=== PATIENT | female | born 1980 | race Caucasian/White ===

== ENCOUNTER 2018-05-05 09:51 | Inpatient (IN) | payer BC ==
[2018-05-05] MEDS ORDERED: SODIUM CHLORIDE 0.9% 1,000 ML IV ONE (10:12)
[2018-05-05 10:41] LABS: Basophils % (A) 0 %; Eosinophils # (A) 0.1 k/uL (0-0.7); Eosinophils % (A) 0 %; HCT 42.6 % (34.0-46.0); Lymphocytes # (A) 2.3 k/uL (1.0-4.8); Lymphocytes % (A) 15 %; MCH 28.6 pg (25.0-35.0); MCV 86.8 fL (80.0-100.0); Mean Platelet Volume 6.8; Monocytes # (A) 0.5 k/uL (0-1.0); Monocytes % (A) 3 %; Neutrophils % (A) 81 %; Platelet Count 375 k/uL (150-450); RDW 13.5 % (11.5-15.5); WBC 14.9 k/uL (3.8-10.6)
--- NOTE | 2018-05-05 10:50 | ED ---
Altered Mental Status HPI - General Chief Complaint: Altered Mental Status Stated Complaint: ETOH Time Seen by Provider: 05/05/18 09:51 Source: patient, EMS, RN notes reviewed Mode of arrival: EMS Limitations: altered mental status - History of Present Illness Initial Comments: This is a 37-year-old female with an unknown past medical history who per EMS was recently discharged from a rehab who was brought in for evaluation from home. Per paramedics her called for an outside wine stating that his was not acting normally. She did recently get out of her rehab. She is found naked in bed by paramedics. She is brought here for evaluation of patient was nonverbal however and would not answer questions. She seemed to be awake and alert however. There was a small of alcohol on her breath for paramedics. Also question whether her Seroquel was taken as was a prescription in this patient's name of. No other information available at this time. Multiple bruises were reported. MD Complaint: confusion, decreased responsiveness - Related Data Home Medications Medication Instructions Recorded Confirmed Cyclobenzaprine [Flexeril] 10 mg PO HS 05/05/18 05/05/18 DULoxetine HCL [Cymbalta] 60 mg PO DAILY 05/05/18 05/05/18 Hydroxychloroquine Sulfate 200 mg PO BID 05/05/18 05/05/18 [Plaquenil] Pregabalin [Lyrica] 50 mg PO BID 05/05/18 05/05/18 Allergies Allergy/AdvReac Type Severity Reaction Status Date / Time Penicillins Allergy Unknown Verified 05/05/18 10:12 Review of Systems ROS Statement: Those systems with pertinent positive or pertinent negative responses have been documented in the HPI. ROS Other: All systems not noted in ROS Statement are negative. Limitations: ROS unobtainable due to patients medical condition Past Medical History Past Medical History: No Reported History Past Surgical History: No Surgical Hx Reported Smoking Status: Current every day smoker Past Alcohol Use History: Abuse Past Drug Use History: None Reported General Exam - General Exam Comments Initial Comments: This is a well-developed well-nourished awake female who will not or cannot respond to questions she does avoid eye contact. There is evidence of some bruising about the orbits as well as bruising to both volar forearms with some abrasions to the right forearm. Limitations: altered mental status General appearance: alert, lethargic Head exam: Present: normocephalic, other (As stated above) Eye exam: Present: normal appearance, PERRL, EOMI. Absent: scleral icterus, conjunctival injection, periorbital swelling ENT exam: Present: normal exam, mucous membranes moist Neck exam: Present: normal inspection, full ROM. Absent: tenderness, meningismus, lymphadenopathy Respiratory exam: Present: normal lung sounds bilaterally. Absent: respiratory distress, wheezes, rales, rhonchi, stridor Cardiovascular Exam: Present: normal rhythm, tachycardia, normal heart sounds. Absent: systolic murmur, diastolic murmur, rubs, gallop, clicks GI/Abdominal exam: Present: soft, normal bowel sounds. Absent: distended, tenderness, guarding, rebound, rigid, bruit, pulsatile mass, hernia Rectal exam: Present: deferred Extremities exam: Present: full ROM, normal capillary refill, other (The bruising as noted above as well as abrasion to the right forearm no active bleeding no wounds that need repair) Back exam: Present: normal inspection, full ROM Neurological exam: Present: altered, CN II-XII intact. Absent: motor sensory deficit Psychiatric exam: Present: flat affect Skin exam: Present: warm, dry Course Vital Signs 05/05/18 05/05/18 10:01 13:05 Temperature 99 F 98.6 F Pulse Rate 133 H 107 H Respiratory 20 16 Rate Blood Pressure 115/75 98/65 O2 Sat by Pulse 97 97 Oximetry - Reevaluation(s) Reevaluation #1: 05/05/18 14:07 I did reevaluate patient several occasions she is much more alert though she does remain intoxicated. She is still refusing give much information with respect to her address medical history etc. Medical Decision Making - Medical Decision Making Patient will be admitted for evaluation for acute alcohol intoxication. - Lab Data Result diagrams: 05/05/18 10:25 05/05/18 10:25 Lab Results 05/05/18 05/05/18 05/05/18 Range/Units 10:17 10:17 10:25 WBC (3.8-10.6) k/uL RBC (3.80-5.40) m/uL Hgb (11.4-16.0) gm/dL Hct (34.0-46.0) % MCV (80.0-100.0) fL MCH (25.0-35.0) pg MCHC (31.0-37.0) g/dL RDW (11.5-15.5) % Plt Count (150-450) k/uL Neutrophils % % Lymphocytes % % Monocytes % % Eosinophils % % Basophils % % Neutrophils # (1.3-7.7) k/uL Lymphocytes # (1.0-4.8) k/uL Monocytes # (0-1.0) k/uL Eosinophils # (0-0.7) k/uL Basophils # (0-0.2) k/uL PT (9.0-12.0) sec INR (<1.2) APTT (22.0-30.0) sec Sodium (137-145) mmol/L Potassium (3.5-5.1) mmol/L Chloride (98-107) mmol/L Carbon Dioxide (22-30) mmol/L Anion Gap mmol/L BUN (7-17) mg/dL Creatinine (0.52-1.04) mg/dL Est GFR (CKD-EPI)AfAm (>60 ml/min/1.73 sqM) Est GFR (CKD-EPI)NonAf (>60 ml/min/1.73 sqM) Glucose (74-99) mg/dL POC Glucose (mg/dL) (75-99) mg/dL POC Glu Master Fisher ID Osmolality 387 H* (280-301) mosm/kg Calcium (8.4-10.2) mg/dL Magnesium (1.6-2.3) mg/dL Total Bilirubin (0.2-1.3) mg/dL AST (14-36) U/L ALT (9-52) U/L Alkaline Phosphatase (38-126) U/L Ammonia (<30) umol/L Total Creatine Kinase (30-135) U/L CK-MB (CK-2) (0.0-2.4) ng/mL CK-MB (CK-2) Rel Index Troponin I (0.000-0.034) ng/mL Total Protein (6.3-8.2) g/dL Albumin (3.5-5.0) g/dL Amylase (30-110) U/L Lipase (23-300) U/L Urine Color Light Yellow Urine Appearance Clear (Clear) Urine pH 6.0 (5.0-8.0) Ur Specific [place] 1.002 (1.001-1.035) Urine Protein Negative (Negative) Urine Glucose (UA) Negative (Negative) Urine Ketones Negative (Negative) Urine Blood Small H (Negative) Urine Nitrite Negative (Negative) Urine Bilirubin Negative (Negative) Urine Urobilinogen <2.0 (<2.0) mg/dL Ur Leukocyte Esterase Negative (Negative) Urine WBC <1 (0-5) /hpf Ur Squamous Epith Cells <1 (0-4) /hpf Urine Bacteria Occasional H (None) /hpf Urine Mucus Rare H (None) /hpf Urine HCG, Qual Not Detected (Not Detectd) Salicylates mg/dL Urine Opiates Screen Not Detected (NotDetected) Ur Oxycodone Screen Not Detected (NotDetected) Urine Methadone Screen Not Detected (NotDetected) Ur Propoxyphene Screen Not Detected (NotDetected) Acetaminophen ug/mL Ur Barbiturates Screen Not Detected (NotDetected) U Tricyclic Antidepress Not Detected (NotDetected) Ur Phencyclidine Scrn Not Detected (NotDetected) Ur Amphetamines Screen Not Detected (NotDetected) U Methamphetamines Scrn Not Detected (NotDetected) U Benzodiazepines Scrn Not Detected (NotDetected) Urine Cocaine Screen Not Detected (NotDetected) U Marijuana (THC) Screen Detected H (NotDetected) Serum Alcohol mg/dL 05/05/18 05/05/18 05/05/18 Range/Units 10:25 10:25 10:25 WBC (3.8-10.6) k/uL RBC (3.80-5.40) m/uL Hgb (11.4-16.0) gm/dL Hct (34.0-46.0) % MCV (80.0-100.0) fL MCH (25.0-35.0) pg MCHC (31.0-37.0) g/dL RDW (11.5-15.5) % Plt Count (150-450) k/uL Neutrophils % % Lymphocytes % % Monocytes % % Eosinophils % % Basophils % % Neutrophils # (1.3-7.7) k/uL Lymphocytes # (1.0-4.8) k/uL Monocytes # (0-1.0) k/uL Eosinophils # (0-0.7) k/uL Basophils # (0-0.2) k/uL PT (9.0-12.0) sec INR (<1.2) APTT (22.0-30.0) sec Sodium 146 H (137-145) mmol/L Potassium 3.9 (3.5-5.1) mmol/L Chloride 106 (98-107) mmol/L Carbon Dioxide 21 L (22-30) mmol/L Anion Gap 19 mmol/L BUN 5 L (7-17) mg/dL Creatinine 0.65 (0.52-1.04) mg/dL Est GFR (CKD-EPI)AfAm >90 (>60 ml/min/1.73 sqM) Est GFR (CKD-EPI)NonAf >90 (>60 ml/min/1.73 sqM) Glucose 130 H (74-99) mg/dL POC Glucose (mg/dL) (75-99) mg/dL POC Glu Master Fisher ID Osmolality (280-301) mosm/kg Calcium 9.5 (8.4-10.2) mg/dL Magnesium 1.6 (1.6-2.3) mg/dL Total Bilirubin 0.4 (0.2-1.3) mg/dL AST 80 H (14-36) U/L ALT 68 H (9-52) U/L Alkaline Phosphatase 75 (38-126) U/L Ammonia 13 (<30) umol/L Total Creatine Kinase 853 H (30-135) U/L CK-MB (CK-2) 10.2 H (0.0-2.4) ng/mL CK-MB (CK-2) Rel Index 1.2 Troponin I <0.012 (0.000-0.034) ng/mL Total Protein 7.7 (6.3-8.2) g/dL Albumin 4.5 (3.5-5.0) g/dL Amylase 45 (30-110) U/L Lipase 84 (23-300) U/L Urine Color Urine Appearance (Clear) Urine pH (5.0-8.0) Ur Specific [place] (1.001-1.035) Urine Protein (Negative) Urine Glucose (UA) (Negative) Urine Ketones (Negative) Urine Blood (Negative) Urine Nitrite (Negative) Urine Bilirubin (Negative) Urine Urobilinogen (<2.0) mg/dL Ur Leukocyte Esterase (Negative) Urine WBC (0-5) /hpf Ur Squamous Epith Cells (0-4) /hpf Urine Bacteria (None) /hpf Urine Mucus (None) /hpf Urine HCG, Qual (Not Detectd) Salicylates <1.0 mg/dL Urine Opiates Screen (NotDetected) Ur Oxycodone Screen (NotDetected) Urine Methadone Screen (NotDetected) Ur Propoxyphene Screen (NotDetected) Acetaminophen <10.0 ug/mL Ur Barbiturates Screen (NotDetected) U Tricyclic Antidepress (NotDetected) Ur Phencyclidine Scrn (NotDetected) Ur Amphetamines Screen (NotDetected) U Methamphetamines Scrn (NotDetected) U Benzodiazepines Scrn (NotDetected) Urine Cocaine Screen (NotDetected) U Marijuana (THC) Screen (NotDetected) Serum Alcohol 379 H* mg/dL 05/05/18 05/05/18 05/05/18 Range/Units 10:25 10:25 10:30 WBC 14.9 H (3.8-10.6) k/uL RBC 4.90 (3.80-5.40) m/uL Hgb 14.0 (11.4-16.0) gm/dL Hct 42.6 (34.0-46.0) % MCV 86.8 (80.0-100.0) fL MCH 28.6 (25.0-35.0) pg MCHC 33.0 (31.0-37.0) g/dL RDW 13.5 (11.5-15.5) % Plt Count 375 (150-450) k/uL Neutrophils % 81 % Lymphocytes % 15 % Monocytes % 3 % Eosinophils % 0 % Basophils % 0 % Neutrophils # 12.0 H (1.3-7.7) k/uL Lymphocytes # 2.3 (1.0-4.8) k/uL Monocytes # 0.5 (0-1.0) k/uL Eosinophils # 0.1 (0-0.7) k/uL Basophils # 0.0 (0-0.2) k/uL PT 9.7 (9.0-12.0) sec INR 1.0 (<1.2) APTT 22.1 (22.0-30.0) sec Sodium (137-145) mmol/L Potassium (3.5-5.1) mmol/L Chloride (98-107) mmol/L Carbon Dioxide (22-30) mmol/L Anion Gap mmol/L BUN (7-17) mg/dL Creatinine (0.52-1.04) mg/dL Est GFR (CKD-EPI)AfAm (>60 ml/min/1.73 sqM) Est GFR (CKD-EPI)NonAf (>60 ml/min/1.73 sqM) Glucose (74-99) mg/dL POC Glucose (mg/dL) 131 H (75-99) mg/dL POC Glu Master Fisher ID Therese Griffith Osmolality (280-301) mosm/kg Calcium (8.4-10.2) mg/dL Magnesium (1.6-2.3) mg/dL Total Bilirubin (0.2-1.3) mg/dL AST (14-36) U/L ALT (9-52) U/L Alkaline Phosphatase (38-126) U/L Ammonia (<30) umol/L Total Creatine Kinase (30-135) U/L CK-MB (CK-2) (0.0-2.4) ng/mL CK-MB (CK-2) Rel Index Troponin I (0.000-0.034) ng/mL Total Protein (6.3-8.2) g/dL Albumin (3.5-5.0) g/dL Amylase (30-110) U/L Lipase (23-300) U/L Urine Color Urine Appearance (Clear) Urine pH (5.0-8.0) Ur Specific [place] (1.001-1.035) Urine Protein (Negative) Urine Glucose (UA) (Negative) Urine Ketones (Negative) Urine Blood (Negative) Urine Nitrite (Negative) Urine Bilirubin (Negative) Urine Urobilinogen (<2.0) mg/dL Ur Leukocyte Esterase (Negative) Urine WBC (0-5) /hpf Ur Squamous Epith Cells (0-4) /hpf Urine Bacteria (None) /hpf Urine Mucus (None) /hpf Urine HCG, Qual (Not Detectd) Salicylates mg/dL Urine Opiates Screen (NotDetected) Ur Oxycodone Screen (NotDetected) Urine Methadone Screen (NotDetected) Ur Propoxyphene Screen (NotDetected) Acetaminophen ug/mL Ur Barbiturates Screen (NotDetected) U Tricyclic Antidepress (NotDetected) Ur Phencyclidine Scrn (NotDetected) Ur Amphetamines Screen (NotDetected) U Methamphetamines Scrn (NotDetected) U Benzodiazepines Scrn (NotDetected) Urine Cocaine Screen (NotDetected) U Marijuana (THC) Screen (NotDetected) Serum Alcohol mg/dL - EKG Data -: EKG Interpreted by Wi EKG shows normal: sinus rhythm (Sinus rhythm with a tachycardic rate of 125 [place] interval 156 QRS 86 QT since QTC 310/447 rightward axis) Disposition Clinical Impression: Alcoholic intoxication, Acute confusional state Disposition: ADMITTED IP TO THIS [facility] Condition: Stable Referrals: Adriana Chandra MD [Primary Care Provider] - 1-2 days
[2018-05-05 10:53] LABS: ALT 68 U/L (9-52); AST 80 U/L (14-36); Acetaminophen <10.0 ug/mL; Albumin 4.5 g/dL (3.5-5.0); Alkaline Phosphatase 75 U/L (38-126); Amylase 45 U/L (30-110); Anion Gap 19 mmol/L; Blood Urea Nitrogen 5 mg/dL (7-17); Calcium 9.5 mg/dL (8.4-10.2); Carbon Dioxide 21 mmol/L (22-30); Chloride 106 mmol/L (98-107); Glucose 130 mg/dL (74-99); Lipase 84 U/L (23-300); Magnesium 1.6 mg/dL (1.6-2.3); Potassium 3.9 mmol/L (3.5-5.1); Salicylate <1.0 mg/dL; Sodium 146 mmol/L (137-145); Total Bilirubin 0.4 mg/dL (0.2-1.3); Total Protein 7.7 g/dL (6.3-8.2)
[2018-05-05 10:54] LABS: Prothrombin Time 9.7 sec (9.0-12.0)
[2018-05-05 10:57] LABS: Appearance,Urine Clear (Clear); Bacteria,Urine Occasional /hpf; Bilirubin,Urine Negative (Negative); Blood,Urine Small (Negative); Color,Urine Light Yellow; Glucose,Urine (UA) Negative (Negative); Ketones,Urine Negative (Negative); Leukocyte Esterase,Urine Negative (Negative); Mucus,Urine Rare /hpf; Nitrite,Urine Negative (Negative); Protein,Urine Negative (Negative); Specific Gravity,Urine 1.002 (1.001-1.035); Squamous Epithelial Cell,Urine <1 /hpf (0-4); Urobilinogen,Urine <2.0 mg/dL (<2.0); WBC,Urine <1 /hpf (0-5)
[2018-05-05 10:58] LABS: Amphetamine Screen,Urine Not Detected (NotDetected); Barbiturate Screen,Urine Not Detected (NotDetected); Benzodiazepines Screen,Urine Not Detected (NotDetected); Cocaine Screen,Urine Not Detected (NotDetected); Methadone Screen, Urine Not Detected (NotDetected); Opiate Screen,Urine Not Detected (NotDetected); Oxycodone Screen, Urine Not Detected (NotDetected); Phencyclidine Screen,Urine Not Detected (NotDetected); Tricyclic Antidepressant,Urine Not Detected (NotDetected); Urn Cannabinoid Scrn Detected (NotDetected)
[2018-05-05 11:01] LABS: Partial Thromboplastin Time 22.1 sec (22.0-30.0)
[2018-05-05 11:09] LABS: Creatine Kinase 853 U/L (30-135)
[2018-05-05 11:12] LABS: Alcohol 379 mg/dL
[2018-05-05 11:22] LABS: Creatine Kinase MB 10.2 ng/mL (0.0-2.4); Troponin I <0.012 ng/mL (0.000-0.034)
[2018-05-05 13:09] LABS: Glucose,Whole Blood 131 mg/dL (75-99)
[2018-05-05] MEDS ORDERED: NALOXONE 0.4 MG/ML 1 ML VIAL IV PRN (14:09)
--- NOTE | 2018-05-05 14:25 | CT ---
EXAMINATION TYPE: CT brain wo con DATE OF EXAM: 05/05/2018 COMPARISON: None HISTORY: Altered mental status CT DLP: 1148.[address] of the brain was performed. The ventricles, basal cisterns and sulci overlying the cerebral convexities demonstrate a normal appe arance. There is no evidence for intracranial hemorrhage or sulcal effacement. No mass effects are seen. Osseous calvarium is intact. If symptoms persist consider MRI as clinically warranted. IMPRESSION: 1. No acute intracranial process is seen at this time.
--- NOTE | 2018-05-05 14:31 | XR ---
EXAMINATION TYPE: XR chest 2V DATE OF EXAM: 05/05/2018 COMPARISON: NONE TECHNIQUE: PA and lateral views submitted. HISTORY: Altered mental status FINDINGS: The lungs are clear and there is no pneumothorax, pleural effusion, or focal pneumonia. No overt fa ilure. Right clavicle is elevated relative to the acromium correlate for previous AC joint injury. IMPRESSION: 1. No acute process.
[2018-05-05] MEDS ORDERED: LORazepam 2 MG/ML INJ IV PRN (14:45)
[2018-05-05] MEDS ORDERED: THIAMINE 100 MG/ML 2 ML VIAL IM STA (14:45)
[2018-05-05] MEDS ORDERED: ACETAMINOPHEN TAB 500 MG TAB PO PRN (15:09)
[2018-05-05] MEDS ORDERED: HYDROcodone/APAP 5-325MG 1 EACH TAB PO PRN (15:09)
[2018-05-05] MEDS: SODIUM CHLORIDE 0.9% 1,000 ML IV SCH (15:52)
[2018-05-05] MEDS: LORazepam 2 MG/ML INJ IV PRN ×2 (16:57→21:13)
[2018-05-05] MEDS: THIAMINE 100 MG TAB PO SCH (16:57)
--- NOTE | 2018-05-05 17:24 | HP ---
HISTORY AND PHYSICAL CHIEF COMPLAINT: Change in mental status. HISTORY OF PRESENT ILLNESS: This 37-year-old woman without any a documented clear history in the past, was taken by EMS with change in mental status. Apparently, the EMS was called by saying that the patient has some change in mental status. EMS found the patient confused, some bruises, alcohol level was elevated up to 379 and please refer to the EMS notes for further details. The patient was taken to [facility] and was admitted for further evaluation and treatment. Apparently the patient was recently seen by Dr. Chandra and was given Plaquenil and Lyrica. Otherwise, no detailed history is not available. Per chart the patient is unable to remember clearly the past medical history. According to the chart, the patient resides with spouse and 2 year son. There is also history of smoking. The patient also reported that the patient has been drinking a significant amount of alcohol. PAST MEDICAL HISTORY: History of rheumatoid arthritis. SOCIAL HISTORY: History of smoking, history of alcohol as mentioned earlier. REVIEW OF SYSTEMS: Review of systems could to be taken because the patient is confused at this time. PHYSICAL EXAM: Pulse is 101, blood pressure 120/79, respiration 17, temperature 98.2, pulse ox 98% on room air. HEENT is conjunctivae normal. Neck is no jugular venous distention. S1, S2. RESPIRATORY: Breath sounds diminished in the bases. A few scattered rhonchi and crackles. ABDOMEN: Soft, nontender. No mass palpable. Legs: No edema. No swelling. NERVOUS SYSTEM: Higher functions as mentioned earlier. Otherwise moves all 4 limbs. No focal deficits. Lymphatics: No lymph nodes palpable in the neck, axillae or groin. Skin: Significant diffuse bruises present. LAB STUDIES: WBC 14.9, hemoglobin is 14, sodium 140, potassium 3.9, osmolality 387, AST ALT noted. Creatine kinase 853. ASSESSMENT: 1. Change in mental status, possible acute alcoholic intoxication. 2. Rule out psychiatric illnesses. 3. Rule out rheumatology disorders. 4. Increased AST, ALT, possibly alcoholic hepatitis. 5. Rule out depression bipolar. 6. Hypernatremia. 7. Increased WBC. RECOMMENDATIONS AND DISCUSSION: In this 37-year-old woman who presented with multiple complex medical issues, we will monitor the patient closely. Continue the current medications, management and symptomatic treatment. Otherwise, at this time, [facility] protocol. Psychiatric consultation. One-to-one precautions. Social Work consultation evaluation and resume the home medications. Hold Lyrica for now. See orders for details. p.r.n. Ativan may be used. Prognosis guarded because of multiple complex medical issues. Further recommendations to follow. MMODL / IJN: [id number] / MTDD
[2018-05-05] MEDS: HEPARIN SODIUM,PORCINE 5,000 UNIT/ML 1 ML VIAL SQ SCH (21:14)
[2018-05-05] MEDS: HYDROXYCHLOROQUINE SULFATE 200 MG TAB PO SCH (21:14)
[2018-05-05] MEDS: CYCLOBENZAPRINE 10 MG TAB PO SCH (21:14)
[2018-05-06] MEDS: LORazepam 2 MG/ML INJ IV PRN ×6 (01:17→13:40)
[2018-05-06] MEDS: SODIUM CHLORIDE 0.9% 1,000 ML IV SCH ×2 (03:26→14:55)
[2018-05-06] MEDS: IOPAMIDOL-300 CONTRAST 30 ML VIAL (ORAL USE) PO PRN ×2 (06:56→07:41)
[2018-05-06] MEDS: HYDROXYCHLOROQUINE SULFATE 200 MG TAB PO SCH ×2 (07:36→21:53)
[2018-05-06] MEDS: HEPARIN SODIUM,PORCINE 5,000 UNIT/ML 1 ML VIAL SQ SCH ×2 (07:37→21:53)
--- NOTE | 2018-05-06 09:21 | CT ---
EXAMINATION TYPE: CT abdomen pelvis wo con DATE OF EXAM: 05/06/2018 COMPARISON: None HISTORY: 37-year-old female Abdominal pain CT DLP: 426.3 mGycm. Automated exposure control for dose reduction was used. TECHNIQUE: Contiguous axial scanning of the abdomen and pelvis without IV contrast. Coronal and sagit neftali reconstructions performed. FINDINGS: Heart normal size without pericardial effusion. Lung bases clear without pleural effusion. Liver enlarged measuring 19.8 cm with marked decreased attenuation of the hepatic parenchyma. 8 mm so ft tissue density peripheral and inferior right liver lobe, axial image 32 can't be reassessed on fol low-up ultrasound. Adrenal glands, kidneys, spleen, and pancreas appear within normal limits. Dilated small bowel loops in the mid and lower abdomen without a transition point. Multiple ileal loo p's angle in the abdomen and pelvis show moderate circumferential wall thickening and fold thickening measuring up to 7 mm. There is associated mesenteric edema and mild pelvic free fluid. No free air. Oral contrast has progressed into the cecum. No significant stool burden and no pericolonic inflammatory change. Bladder partially distended. Uterus and left ovary are visualized. Right ovary attempts obscured by a djacent pleural parenchymal disease. No mesenteric or retroperitoneal lymphadenopathy seen. Bones: No osseous destructive process. Suggestion of some sludge within the gallbladder. No abnormal gallbladder distention. IMPRESSION: 1. Moderate to severe nonspecific ileitis with multiple inflamed small bowel loops hanging low in th e abdomen and pelvis. Associated mesenteric inflammation and mild pelvic free fluid. No free air. Cor relate for infectious or inflammatory causes including IBD. 2. Some dilated small bowel loops compatible with secondary ileus. No transition point to suggest ob struction. 3. Hepatomegaly (20 cm) with marked hepatic steatosis. Correlate with LFTs, lipid profile, and patie nt risk factors.
--- NOTE | 2018-05-06 10:22 | P.CN ---
Psychiatric Consult - . Consult date: 05/06/18 Consult:: 05/06/18 09:51 Altered mental status possible psychiatric history Assessment and Plan Assessment: HPI: This is a 37-year-old female with an unknown past medical history who per EMS was recently discharged from a rehab who was brought in for evaluation from home. Per paramedics her called for an outside wine stating that his was not acting normally. She did recently get out of her rehab. She is found naked in bed by paramedics. She is brought here for evaluation of patient was nonverbal however and would not answer questions. She seemed to be awake and alert however. There was a small of alcohol on her breath for paramedics. Also question whether her Seroquel was taken as was a prescription in this patient's name of. No other information available at this time. Multiple bruises were reported. MD Complaint: confusion, decreased responsiveness Interview with the patient who is a 37-year-old female who recently moved back to this area from [place] state has fibromyalgia and feels no one wants to treat her in this area. She is tearful sad and wants the ability to stop drinking. She is on still her fibromyalgia mental medicine which includes duloxetine and Plaquenil and Lyrica so I'm not sure what she is seeking. She states when she gets in pain she starts drinking alcohol we did discuss in detail use of ReVia naltrexone for alcohol prevention. I also recommended that she go to AA for 90 meetings in 90 days by therapist and psychiatrist. She states her melter caster now is not treating her fibromyalgia as I stated above she's getting the state near medication - Related Data Home Medications Medication Instructions Recorded Confirmed Cyclobenzaprine [Flexeril] 10 mg PO HS 05/05/18 05/05/18 DULoxetine HCL [Cymbalta] 60 mg PO DAILY 05/05/18 05/05/18 Hydroxychloroquine Sulfate 200 mg PO BID 05/05/18 05/05/18 [Plaquenil] Pregabalin [Lyrica] 50 mg PO BID 05/05/18 05/05/18 Allergies Allergy/AdvReac Type Severity Reaction Status Date / Time Penicillins Allergy Unknown Verified 05/05/18 10:12 Review of Systems ROS Statement: Those systems with pertinent positive or pertinent negative responses have been documented in the HPI. ROS Other: All systems not noted in ROS Statement are negative. Limitations: ROS unobtainable due to patients medical condition Past Medical History Past Medical History: No Reported History Past Surgical History: No Surgical Hx Reported Smoking Status: Current every day smoker Past Alcohol Use History: Abuse Past Drug Use History: None Reported Mental Status Examination - General Appearance: [well groomedappears younger than stated age] Speech/Language: [spontaneous Attitude/Behavior: [cooperative Mood: [depressed, anxious, fearful, hopelessness] Affect: [full range Orientation: [time, person, place situation] Thought Content: [wnl Risk Factors: [She is not suicidal (ideations, plan), and/or Homicidal ( ideations, plan), other] Perception: [wnl Thought Process: wnl Concentration/Attention Span: [wnl,] [Per observation and interview with the Recent Memory: [wnl Remote Memory: [wnl [past events, as related history] Intelligence: [ average] [based on history, based on vocabulary, syntax, grammar , and content] Judgement: [good] [per patient's behavior/history of present illness] Insight: [good] [understanding severity of illness/history of present illness] Psychiatric impression: History of major depressive disorder which is being treated for with the above antidepressant also history of fibromyalgia which can include anxiety and depressive symptoms. It is obvious that she has not alcohol use disorder severe and needs to focus on not drinking by going to AA 90 meetings in 90 days, finding a therapist to talk to which usually helps and recommend DBT, and exercise water aerobics program. She does not need to be in a psychiatric unit and can be treated on outpatient basis Psychiatric recommendations: Recommend using ReVia 50 mg at bedtime for alcohol prevention. Thank you for the most interesting consult Bandar Jang D.O. PhD (1) Alcoholic intoxication Current Visit: Yes Status: Acute Code(s): F10.929 - ALCOHOL USE, UNSPECIFIED WITH INTOXICATION, UNSPECIFIED SNOMED Code(s): 64534147 Time with Patient: Less than 30
[2018-05-06 10:25] LABS: Anion Gap 8 mmol/L; Blood Urea Nitrogen 9 mg/dL (7-17); Calcium 8.8 mg/dL (8.4-10.2); Carbon Dioxide 27 mmol/L (22-30); Chloride 103 mmol/L (98-107); Glucose 107 mg/dL (74-99); Sodium 138 mmol/L (137-145)
[2018-05-06 10:32] LABS: Potassium 4.3 mmol/L (3.5-5.1)
[2018-05-06 10:34] LABS: Basophils % (A) 0 %; Eosinophils # (A) 0.1 k/uL (0-0.7); Eosinophils % (A) 1 %; HCT 35.7 % (34.0-46.0); HGB 11.9 gm/dL (11.4-16.0); Lymphocytes # (A) 1.6 k/uL (1.0-4.8); Lymphocytes % (A) 19 %; MCH 28.6 pg (25.0-35.0); MCHC 33.2 g/dL (31.0-37.0); MCV 86.2 fL (80.0-100.0); Mean Platelet Volume 7.3; Monocytes # (A) 0.6 k/uL (0-1.0); Monocytes % (A) 7 %; Neutrophils # (A) 5.9 k/uL (1.3-7.7); Neutrophils % (A) 72 %; Platelet Count 225 k/uL (150-450); RBC 4.15 m/uL (3.80-5.40); RDW 13.2 % (11.5-15.5); WBC 8.2 k/uL (3.8-10.6)
[2018-05-06] MEDS: MULTIVITAMINS, THERA 1 EACH TAB PO SCH (11:07)
[2018-05-06] MEDS: THIAMINE 100 MG TAB PO SCH ×2 (11:07→14:58)
--- NOTE | 2018-05-06 12:50 | P.PN ---
Subjective This is a pleasant 37 years old female with past medical history of fibromyalgia and possible depression that she sees a x ray physician Dr. Griffin who prescribed her Lyrica and Plaquenil, Cymbalta. However patient denies suicidal or homicidal ideation. Patient presents because she was not acting right. And on admission patient has high serum alcohol level of 379. And mild hypernatremia with sodium 146, with increase of his molality at 387. And leukocytosis which came back to normal from 14.9 to 8.2 K. Patient was noticed to have bruising in her upper extremity however she denies history of fall or abuse. Patient was admitted and placed on see what protocol [place] was score was 10-15 years earlier this morning and she got 2 doses of benzodiazepine with 4 hours apart. Patient told me usually she does not drink and she was started drinking for the last few weeks for her fibromyalgia as per patient. I offered to test her for , patient declined. Risks benefits and alternatives are explained and she verbalized understanding Objective - Vital Signs Vital signs: Vital Signs Temp 98.6 F 05/06/18 07:34 Pulse 109 H 05/06/18 07:34 Resp 18 05/06/18 07:34 BP 124/85 05/06/18 07:34 Pulse Ox 97 05/06/18 07:34 Intake & Output 05/05/18 05/06/18 05/06/18 18:59 06:59 18:59 Output Total 200 Balance -200 Weight 72.575 kg Output: Urine 200 Straight 200 Other: # Voids 1 2 # Bowel Movements 1 - Exam GENERAL: The patient is alert and oriented x3, not in any acute distress. Well developed, well nourished. HEENT: Pupils are round and equally reacting to light. EOMI. No scleral icterus. No conjunctival pallor. Normocephalic, atraumatic. No pharyngeal erythema. No thyromegaly. CARDIOVASCULAR: S1 and S2 present. No murmurs, rubs, or gallops. PULMONARY: Chest is clear to auscultation, no wheezing or crackles. ABDOMEN: Soft, nontender, nondistended, normoactive bowel sounds. No palpable organomegaly. MUSCULOSKELETAL: No joint swelling or deformity. Bruising in both upper extremities. EXTREMITIES: No cyanosis, clubbing, or pedal edema. NEUROLOGICAL: Gross neurological examination did not reveal any focal deficits. SKIN: No rashes. - Labs CBC & Chem 7: 05/06/18 09:37 05/06/18 09:37 Labs: Abnormal Lab Results - Last 24 Hours (Table) 05/05/18 05/06/18 Range/Units 10:30 09:37 Glucose 107 H (74-99) mg/dL POC Glucose (mg/dL) 131 H (75-99) mg/dL Microbiology - Last 24 Hours (Table) 05/05/18 10:17 Urine Culture - Preliminary Urine,Catheterized Assessment and Plan Assessment: Acute alcohol intoxication and withdrawal Change in mental status, possible due to acute alcohol intoxication. Resolving History of major depression. With no suicidal ideation. Evaluated by psychiatrist Fibromyalgia Mild hypernatremia and dehydration. Resolved Leukocytosis. Resolved Plan: This is a pleasant 37 years old female who presents because of alcohol intoxication, withdrawal and fibromyalgia. Continue with see what protocol and IV fluids. Psychiatric evaluation.Labs and medication were reviewed.. Continue same treatment. Continue with symptomatic treatment. Resume home medication. Monitor lytes and vitals. DVT and GI prophylaxis. Further recommendations of the clinical course of the patient DVT prophylaxis: Subcutaneous heparin GI Prophylaxis: Pepcid Prognosis is guarded
[2018-05-06] MEDS: ALPRAZolam 0.5 MG TAB PO PRN (14:58)
[2018-05-06] MEDS: GABAPENTIN 100 MG CAP PO SCH ×2 (14:58→21:52)
--- NOTE | 2018-05-06 15:14 | CDI ---
Last Revision, May 2017 Documentation Clarification Form Date: 05/06/18 From: Mariaelena Cordero RN Admit Date: 05/06/2018 8:46:00 AM Patient Name: Marie Zhang Visit Number: [id number] ATTENTION: The Clinical Documentation Specialists (CDI) and [facility] Coding Staff appreciate your assistance in clarifying documentation. Please respond to the clarification below the line at the bottom and electronically sign. The CDI & [facility] Coding staff will review the response and follow-up if needed. Please note: Queries are made part of the Legal Health Record. If you have any questions, please contact the author of this message via ITS. Jeramy Arias MD, Can you please render your opinion on the following documentation? Patient admitted for alcohol intoxication History/Risk factors: RA, smoking, ETOH, fibromyalgia, major depression Clinical Indicators: Vitals on admission: T 99, P 133, R 20, 115/75, 97% RA Labs: WBC 14.9, SOD 146, C02 21, BUN 5, OSMOLALITY 387, AST 80, ALT 68, TOT CR KIN 853, CKMB 10.2 URINE DETECTED MARIJUANA, SERUM ALCOHOL 379 CT Brain: no acute intracranial process ED notes states patient was altered mental status, lethargic. H&P 12/4 Patient is confused. Patients states "she is not acting right". Treatment: Monitor vitals Medications: thiamine, Narcan, multivitamins, Ativan Consults: Psychiatric consult and Social work consult Q 4 hr neuro assessment In your professional opinion, can you please specify, if known? Metabolic Encephalopathy Toxic Encephalopathy Traumatic Encephalopathy Alcoholic Encephalopathy Hepatic Encephalopathy, if indicated, please clarify: Indicate whether acute, sub-acute or chronic? Causal Condition: Alcoholism, Hepatitis, other disease process? Other, please specify Unable to determine No encephalopathy was noted during my evaluation MTDD
[2018-05-06] MEDS: CYCLOBENZAPRINE 10 MG TAB PO SCH (21:53)
[2018-05-06] MEDS: FAMOTIDINE 20 MG/2 ML VIAL IV SCH (21:54)
[2018-05-07] MEDS: metroNIDAZOLE-NS PMX 500 MG in SALINE 1 100ML.BAG IVPB SCH ×2 (00:16→07:49)
[2018-05-07] MEDS: SODIUM CHLORIDE 0.9% 1,000 ML IV SCH ×2 (03:33→16:14)
[2018-05-07] MEDS: LORazepam 2 MG/ML INJ IV PRN ×4 (05:26→17:49)
[2018-05-07] MEDS: ALPRAZolam 0.5 MG TAB PO PRN (06:34)
[2018-05-07] MEDS: HEPARIN SODIUM,PORCINE 5,000 UNIT/ML 1 ML VIAL SQ SCH ×2 (07:49→22:08)
[2018-05-07] MEDS: HYDROXYCHLOROQUINE SULFATE 200 MG TAB PO SCH ×2 (07:49→22:09)
[2018-05-07] MEDS: GABAPENTIN 100 MG CAP PO SCH ×3 (07:49→22:09)
[2018-05-07] MEDS: FAMOTIDINE 20 MG/2 ML VIAL IV SCH ×2 (07:49→22:08)
[2018-05-07 10:30] LABS: Albumin 3.8 g/dL (3.5-5.0); Bilirubin, Delta 0.1 mg/dL (0.0-0.2); Bilirubin,Unconjugated 0.6 mg/dL (0.0-1.1); Total Bilirubin 0.7 mg/dL (0.2-1.3); Total Protein 6.6 g/dL (6.3-8.2)
[2018-05-07] MEDS: MULTIVITAMINS, THERA 1 EACH TAB PO SCH (11:02)
[2018-05-07] MEDS: THIAMINE 100 MG TAB PO SCH ×2 (11:02→16:14)
[2018-05-07] MEDS ORDERED: FOLIC ACID 1 MG TAB PO SCH (12:00)
[2018-05-07] MEDS: metroNIDAZOLE 500 MG TAB PO SCH (16:14)
--- NOTE | 2018-05-07 19:35 | P.PN ---
Subjective This is a pleasant 37 years old female with past medical history of fibromyalgia and possible depression that she sees a engineering inspection assistant Dr. Griffin who prescribed her Lyrica and Plaquenil, Cymbalta. However patient denies suicidal or homicidal ideation. Patient presents because she was not acting right. And on admission patient has high serum alcohol level of 379. And mild hypernatremia with sodium 146, with increase of his molality at 387. And leukocytosis which came back to normal from 14.9 to 8.2 K. Patient was noticed to have bruising in her upper extremity however she denies history of fall or abuse. Patient was admitted and placed on see what protocol [place] was score was 10-15 years earlier this morning and she got 2 doses of benzodiazepine with 4 hours apart. Patient told me usually she does not drink and she was started drinking for the last few weeks for her fibromyalgia as per patient. I offered to test her for , patient declined. Risks benefits and alternatives are explained and she verbalized understanding 05/07/2018 pt is looking more comfortable and less anxoius today , she needed ativan 4 times yesterday,pt today wanted to leave AMA because she was much concerned about her fibromyalgia, i talked to her in length and to her at bed side to stay one more day to continue with therapy till tomorrow and if she feels better we can think of discharge planing and she agrees. pt did not want to f/u with because she took her off lyrica for her fibromyealgia. i talked to pt and she agrees to the appointment i made with engineering inspection assistant at [facility] at [facility] as pt states she is willing to travel to her appointment there. continue with neurontin as it seems helping her. Objective - Vital Signs Vital signs: Vital Signs Temp 99.3 F 05/07/18 15:00 Pulse 75 05/07/18 15:00 Resp 16 05/07/18 15:00 BP 119/80 05/07/18 15:00 Pulse Ox 99 05/07/18 15:00 Intake & Output 05/07/18 05/07/18 05/08/18 06:59 18:59 06:59 Intake Total 100 200 Balance 100 200 Intake: Oral 100 200 Other: # Voids 1 3 - Exam GENERAL: The patient is alert and oriented x3, not in any acute distress. Well developed, well nourished. HEENT: Pupils are round and equally reacting to light. EOMI. No scleral icterus. No conjunctival pallor. Normocephalic, atraumatic. No pharyngeal erythema. No thyromegaly. CARDIOVASCULAR: S1 and S2 present. No murmurs, rubs, or gallops. PULMONARY: Chest is clear to auscultation, no wheezing or crackles. ABDOMEN: Soft, nontender, nondistended, normoactive bowel sounds. No palpable organomegaly. MUSCULOSKELETAL: No joint swelling or deformity. Bruising in both upper extremities. EXTREMITIES: No cyanosis, clubbing, or pedal edema. NEUROLOGICAL: Gross neurological examination did not reveal any focal deficits. SKIN: No rashes. - Labs CBC & Chem 7: 05/06/18 09:37 05/06/18 09:37 Labs: Abnormal Lab Results - Last 24 Hours (Table) 05/07/18 Range/Units 09:21 AST 62 H (14-36) U/L ALT 65 H (9-52) U/L Microbiology - Last 24 Hours (Table) 05/05/18 15:15 Blood Culture - Preliminary Blood No Growth after 48 hours 05/05/18 10:17 Urine Culture - Final Urine,Catheterized Assessment and Plan Assessment: Acute alcohol intoxication and withdrawal Change in mental status, possible due to acute alcohol intoxication. Resolved History of major depression. With no suicidal ideation. Evaluated by psychiatrist Fibromyalgia Mild hypernatremia and dehydration. Resolved Leukocytosis. Resolved Plan: This is a pleasant 37 years old female who presents because of alcohol intoxication, withdrawal and fibromyalgia. Continue with see what protocol and IV fluids. Psychiatric evaluation.Labs and medication were reviewed.. Continue same treatment. Continue with symptomatic treatment. Resume home medication. Monitor lytes and vitals. DVT and GI prophylaxis. Further recommendations of the clinical course of the patient DVT prophylaxis: Subcutaneous heparin GI Prophylaxis: Pepcid Prognosis is guarded
[2018-05-07] MEDS: CYCLOBENZAPRINE 10 MG TAB PO SCH (22:08)
[2018-05-08 00:07] VITALS: RESP 18
[2018-05-08] MEDS: metroNIDAZOLE 500 MG TAB PO SCH ×2 (00:33→09:15)
[2018-05-08] MEDS: LORazepam 2 MG/ML INJ IV PRN ×2 (00:58→05:59)
[2018-05-08] MEDS: SODIUM CHLORIDE 0.9% 1,000 ML IV SCH (05:58)
[2018-05-08 06:29] VITALS: BP 117/85; PULSE 92; TEMP 99.3
[2018-05-08] MEDS ORDERED: chlordiazePOXIDE 25 MG CAP PO STA (08:29)
[2018-05-08] MEDS: GABAPENTIN 100 MG CAP PO SCH (09:17)
[2018-05-08] MEDS: HEPARIN SODIUM,PORCINE 5,000 UNIT/ML 1 ML VIAL SQ SCH (09:17)
[2018-05-08] MEDS: FAMOTIDINE 20 MG/2 ML VIAL IV SCH (09:17)
[2018-05-08] MEDS: HYDROXYCHLOROQUINE SULFATE 200 MG TAB PO SCH (09:17)
[2018-05-08 09:29] LABS: Albumin 3.8 g/dL (3.5-5.0); Bilirubin, Delta 0.3 mg/dL (0.0-0.2); Bilirubin,Unconjugated 0.4 mg/dL (0.0-1.1); Total Bilirubin 0.7 mg/dL (0.2-1.3); Total Protein 6.7 g/dL (6.3-8.2)
[2018-05-08 11:04] LABS: Cholesterol 197 mg/dL (<200); HDL Cholesterol 41 mg/dL (40-60); LDL Cholesterol,Calculated 128 mg/dL (0-99); Triglycerides 140 mg/dL (<150)
--- NOTE | 2018-05-08 18:11 | P.DS ---
Providers Date of admission: 05/06/18 08:46 Attending physician: Olvin Angeles Consults: 05/05/18 15:11 Consult Physician Stat Consulting Provider: Bandar Jang Consult Reason/Comments: Alcohol abuse, possible psychiatric history Do you want consulting provider notified?: Yes Primary care physician: Adriana Chandra [facility] Course: Discharge diagnoses: Acute alcohol intoxication and withdrawal Change in mental status, mostly metabolic encephalopathy due to acute alcohol intoxication. Resolved and patient was fully awake and alert and oriented upon discharge History of major depression. With no suicidal ideation. Evaluated by psychiatrist and cleared her for discharge Fibromyalgia, referral was made for outpatient counter tacker to home patient agrees Systemic inflammatory response on admission with leukocytosis and tachycardia with heart rates more than 90. Gastroenteritis, resolved on antibiotics. Mild hypernatremia and dehydration. Resolved Leukocytosis. Resolved Bilateral upper extremity bruising, resolving upon discharge with no more ports is noticed 8 mm liver nodule on CAT scan This is a pleasant 37 years old female with past medical history of fibromyalgia and possible depression that she sees a counter tacker Dr. Griffin who prescribed her Lyrica and Plaquenil, Cymbalta. However patient denies suicidal or homicidal ideation. Dr. Diana took her off Lyrica as per patient, patient was drinking alcohol. Patient presents because she was not acting right. And on admission patient has high serum alcohol level of 379. And mild hypernatremia with sodium 146, with increase of his molality at 387. And leukocytosis which came back to normal from 14.9 to 8.2 K. Patient was noticed to have bruising in her upper extremity however she denies history of fall or abuse. Patient was admitted and placed on CIWA protocol , patient had high scar on admission, it was coming downtown on the day of discharge she was coming down to 4, and 2-3. Patient was evaluated by psychiatrist and cleared for discharge. Tapered dose of Librium was provided for the patient and counseled about the drink and she agrees. Patient was counseled for outpatient meeting however she doesn't want to go for rehab. Also on admission patient has gastritis-like picture is with abdominal pain and diarrhea and the CAT scan there wasn't evidence of enteritis. Patient was treated with Flagyl and she showed interval improvement under the day of discharge she has no abdominal pain and she had normal bowel movement. An appointment was made for her with a counter tacker and [facility], patient agrees with the appointments place and time and, together with her and she told me she is going to follow-up. Muscle relaxant prescription is provided for the patient does she sees her doctor and she agrees. Also during her evaluation there was 8 mm nodule in the liver, ultrasound of the liver was ordered, however patient did not want to wait till his been done as she wanted to be discharged this morning. As an alternative patient agrees to follow up with her PCP Dr. Lau and she agrees with the appointments and time and made for her with him. I called Dr. Lau and discussed the case with him including the recommendation to do liver ultrasound and possible GI referral if indicated for his 8 mm nodule. As well as follow-up on her liver enzymes which were trending down Patient felt she wants to be discharged from yesterday and more even today, at bedside to take her home. Problems and management plan was discussed with the patient and she verbalized understanding and acceptance. was bedside also upon patient's request Patient was found stable and can be discharged home however she needs follow-up as an outpatient and she agrees. physical exam Gen.: Patient alert awake and oriented X 3, NOT IN DISTRESS CVS: s1-s2, RRR, no murmur CHEST:bilateral CTA, no wheezing or crepitation Abdomen: Soft, no tenderness, no distention, positive bowel sounds Extremities: No leg edema or induration Time spent more than 35 minutes Patient Condition at Discharge: Stable Plan - Discharge Summary Discharge Rx Participant: Yes New Discharge Prescriptions: New Acetaminophen Tab [Tylenol] 500 mg PO Q6HR PRN tab PRN Reason: Fever And/ Or Pain Folic Acid 1 mg PO DAILY@1200 #30 tab metroNIDAZOLE [Flagyl] 500 mg PO Q8HR 2 Days #6 tab Multivitamins, Thera [Multivitamin (formulary)] 1 each PO DAILY@1200 #30 tab Thiamine [Vitamin B-1] 100 mg PO BID@1200,1700 #30 tab Continue Hydroxychloroquine Sulfate [Plaquenil] 200 mg PO BID DULoxetine HCL [Cymbalta] 60 mg PO DAILY Cyclobenzaprine [Flexeril] 10 mg PO HS #7 tab Discontinued Pregabalin [Lyrica] 50 mg PO BID Discharge Medication List DULoxetine HCL [Cymbalta] 60 mg PO DAILY 12/04/18 [History] Hydroxychloroquine Sulfate [Plaquenil] 200 mg PO BID 05/05/18 [History] Acetaminophen Tab [Tylenol] 500 mg PO Q6HR PRN tab 05/08/18 [Rx] Cyclobenzaprine [Flexeril] 10 mg PO HS #7 tab 05/08/18 [Rx] Folic Acid 1 mg PO DAILY@1200 #30 tab 05/08/18 [Rx] Multivitamins, Thera [Multivitamin (formulary)] 1 each PO DAILY@1200 #30 tab 12/17 [Rx] Thiamine [Vitamin B-1] 100 mg PO BID@1200,1700 #30 tab 05/08/18 [Rx] metroNIDAZOLE [Flagyl] 500 mg PO Q8HR 2 Days #6 tab 05/08/18 [Rx] Follow up Appointment(s)/Referral(s): Adriana Chandra MD [Primary Care Provider] - 1-2 days Everett Vinson DO [REFERRING] - 05/13/18 1:00 pm ([id number] [place] [address] we recommend to check your blood test with your doctor including your liver function test and enzymes.) Alexandria Hatfield MD [REFERRING] - 06/09/18 2:15 pm (with counter tacker alexandria Matias. Located at [address] [place] [address], [address]. [place] [address]. Number is [phone] For your fibromyalgia and other rheumatological illnesses) Patient Instructions/Handouts: Alcohol Intoxication (DC) Activity/Diet/Wound Care/Special Instructions: regular diet activity as tolerated we recommend to keep away from alcohol , psychiatrist recommended to go to AA for 90 meetings in 90 days by therapist and psychiatrist. Discharge Disposition: HOME SELF-CARE
== END 2018-05-08 11:42 | disposition home or self-care (01) | DRG 896 ==
LOC: EC 09:51 → 4MS4W 14:11 → OBSVTOIN 05-06 08:46
PROVIDERS: ADMIT Hospitalist; ATTEND Hospitalist
DX: F10.239 Alcohol dependence with withdrawal, unspecified (principal); G93.41 Metabolic encephalopathy; E87.0 Hyperosmolality and hypernatremia; R65.10 Systemic inflammatory response syndrome (SIRS) of non-infectious origin without acute organ dysfunction; E86.0 Dehydration; F17.200 Nicotine dependence, unspecified, uncomplicated; K52.9 Noninfective gastroenteritis and colitis, unspecified; K76.89 Other specified diseases of liver; M06.9 Rheumatoid arthritis, unspecified; M79.7 Fibromyalgia; Y90.8 Blood alcohol level of 240 mg/100 ml or more
CPT/HCPCS: 36415; 51701; 70450; 71046; 74176; 80048; 80053; 80061; 80076; 80306; 80320; 81001; 81025; 82140; 82150; 82550; 82553; 83520; 83690; 83735; 83930; 84484; 85025; 85610; 85730; 87040; 87086; 93005; 96361; 96374; 99285

== ENCOUNTER 2018-09-20 21:13 | Inpatient (IN) | payer BC ==
[2018-09-20 21:51] LABS: Appearance,Urine Clear (Clear); Bilirubin,Urine Negative (Negative); Blood,Urine Negative (Negative); Color,Urine Colorless; Glucose,Urine (UA) Negative (Negative); Ketones,Urine Negative (Negative); Leukocyte Esterase,Urine Negative (Negative); Nitrite,Urine Negative (Negative); PH, Urine 6.5 (5.0-8.0); Protein,Urine Negative (Negative); Specific Gravity,Urine 1.003 (1.001-1.035); Urobilinogen,Urine <2.0 mg/dL (<2.0)
[2018-09-20] MEDS ORDERED: SODIUM CHLORIDE 0.9% 1,000 ML IV ONE (22:07)
[2018-09-20 22:31] LABS: Basophils % (A) 0 %; Eosinophils # (A) 0.1 k/uL (0-0.7); Eosinophils % (A) 1 %; HCT 40.4 % (34.0-46.0); HGB 13.3 gm/dL (11.4-16.0); Lymphocytes # (A) 2.5 k/uL (1.0-4.8); Lymphocytes % (A) 23 %; MCH 28.8 pg (25.0-35.0); MCHC 32.9 g/dL (31.0-37.0); MCV 87.6 fL (80.0-100.0); Mean Platelet Volume 7.2; Monocytes # (A) 0.3 k/uL (0-1.0); Monocytes % (A) 3 %; Neutrophils # (A) 7.5 k/uL (1.3-7.7); Neutrophils % (A) 72 %; Platelet Count 299 k/uL (150-450); RBC 4.61 m/uL (3.80-5.40); RDW 13.3 % (11.5-15.5); WBC 10.5 k/uL (3.8-10.6)
[2018-09-20 22:43] LABS: Amphetamine Screen,Urine Not Detected (NotDetected); Barbiturate Screen,Urine Not Detected (NotDetected); Benzodiazepines Screen,Urine Not Detected (NotDetected); Cocaine Screen,Urine Not Detected (NotDetected); Methadone Screen, Urine Not Detected (NotDetected); Opiate Screen,Urine Not Detected (NotDetected); Oxycodone Screen, Urine Not Detected (NotDetected); Phencyclidine Screen,Urine Not Detected (NotDetected); Tricyclic Antidepressant,Urine Not Detected (NotDetected); Urn Cannabinoid Scrn Detected (NotDetected)
[2018-09-20 22:45] LABS: HCG,Qualitative Serum Not Detected
--- NOTE | 2018-09-20 22:45 | ED ---
General Adult HPI - General Chief complaint: Abdominal Pain Stated complaint: withdrawl from med Time Seen by Provider: 09/20/18 21:36 Source: EMS Mode of arrival: EMS Limitations: no limitations - History of Present Illness Initial comments: 37-year-old female presenting to the emergency department initially with a chief complaint of withdrawal symptoms secondary to running out of her Neurontin and her Flexeril. While speaking with the patient she was unable to provide a reliable history. Nursing staff spoke with EMS who stated that she was interm ittently a note 2-3. She told them she was having left-sided abdominal pain with some nausea and vomiting. Patient admits to left-sided sharp stabbing cramping abdominal pain that she states is worse with alcohol use, not alleviated by anything, and accompanied by nausea. She denies any vomiting to me. She denies any recent alcohol use or drug use. Patient states she does have a history of alcohol abuse in the past and has been to rehab. She states she has had withdrawal seizures but states that she does not drink every day. She denies any other ingestions. Denies suicidal or homicidal ideations, auditory or visual hallucinations, recent psych admission. Denies any dysuria, diarrhea, chest pain, shortness of breath. She also denies any head injury. - Related Data Home Medications Medication Instructions Recorded Confirmed Gabapentin [Neurontin] 300 mg PO HS 09/20/18 09/20/18 Previous Rx's Medication Instructions Recorded Cyclobenzaprine [Flexeril] 10 mg PO HS #7 tab 05/08/18 Allergies Allergy/AdvReac Type Severity Reaction Status Date / Time Penicillins Allergy Rash/Hives Verified 09/20/18 22:08 Review of Systems ROS Statement: Those systems with pertinent positive or pertinent negative responses have been documented in the HPI. Review of Systems Constitutional: Denies fever, chills Eyes: Denies change in vision, Denies pain Ears, nose, mouth, throat: Denies headaches, Denies sore throat Cardiovascular: Denies chest pain. Denies palpitations Respiratory: Denies shortness of breath, Denies cough Gastrointestinal: Positive abdominal pain. Positive nausea. Negative vomiting, diarrhea. Genitourinary: Denies hematuria, Denies infections Musculoskeletal: Denies pain, Denies swelling Integumentary: Denies rash Neurological: Denies headache, focal weakness, focal numbness Psychiatric: Denies anxiety, Denies depression Hematologic/Lymphatic: Denies easy bleeding or bruising ROS Other: All systems not noted in ROS Statement are negative. Past Medical History Past Medical History: Fibromyalgia History of Any Multi-Drug Resistant Organisms: None Reported Past Surgical History: Section Additional Past Anesthesia/Blood Transfusion Reaction / Comment(s): Pt states she has never had surgery/anesthesia or blood Past Psychological History: No Psychological Hx Reported Smoking Status: Current every day smoker Past Alcohol Use History: Rare Past Drug Use History: None Reported - Past Family History Father Family Medical History: No Reported History Additional Family Medical History / Comment(s): Pt states father is healthy. Mother Family Medical History: No Reported History Additional Family Medical History / Comment(s): Mother is healthy General Exam - General Exam Comments Initial Comments: General: Awake, alert. Smells of alcohol. No evidence of traumatic injury. HENT: Normocephalic. Atraumatic. Dry mucous membranes. Eyes: PERRL. 6 mm bilaterally EOMI. No scleral icterus. No injected conjunctiva Neck: Full ROM. No nuchal rigidity Chest/Lungs: Clear to auscultation bilaterally. No wheezing, rhonchi, or rales Cardiac: Sinus tachycardia. Regular rhythm. No murmurs or rubs Abdomen/GI: Soft, LUQ and LLQ tenderness to palpation. No rebound, guarding, or rigidity. Musculoskeletal: Full ROM Skin: Warm, dry, intact Neurologic: A/Ox2. No focal weakness. Moving all 4 extremities. Psych: Intermittent agitation. Tearful. Limitations: no limitations Course Vital Signs 09/20/18 09/20/18 21:18 23:19 Temperature 97.8 F Pulse Rate 111 H 104 H Respiratory 20 20 Rate Blood Pressure 118/87 127/94 O2 Sat by Pulse 98 99 Oximetry Medical Decision Making - Medical Decision Making 37 yoF presenting with the c/c of withdrawal. On initial exam the patient is int ermittently confused. She initially denied any ingestion. VSS. Patient had dilated pupils, dry mucous membranes, and is tachycadic. On further questioning she admits to taking an unknown amount of Benadryl to sleep. She is also intoxicated with a blood alcohol level of 232. UDS positive for THC. Remainder of laboratory workup negative for acute process. She does have mildly elevated liver enzymes that are likely secondary to her ETOH abuse. Patient having intermittent agitation. She was given 1mg of Ativan. I spoke with Dr. Pulliam who is agreeable to admission for anticholinergic toxidrome and ETOH intoxication. - Lab Data Result diagrams: 09/20/18 21:40 09/20/18 21:40 Lab Results 09/20/18 09/20/18 09/20/18 Range/Units 21:00 21:22 21:40 WBC (3.8-10.6) k/uL RBC (3.80-5.40) m/uL Hgb (11.4-16.0) gm/dL Hct (34.0-46.0) % MCV (80.0-100.0) fL MCH (25.0-35.0) pg MCHC (31.0-37.0) g/dL RDW (11.5-15.5) % Plt Count (150-450) k/uL Neutrophils % % Lymphocytes % % Monocytes % % Eosinophils % % Basophils % % Neutrophils # (1.3-7.7) k/uL Lymphocytes # (1.0-4.8) k/uL Monocytes # (0-1.0) k/uL Eosinophils # (0-0.7) k/uL Basophils # (0-0.2) k/uL Sodium 141 (137-145) mmol/L Potassium 4.0 (3.5-5.1) mmol/L Chloride 107 (98-107) mmol/L Carbon Dioxide 19 L (22-30) mmol/L Anion Gap 15 mmol/L BUN 9 (7-17) mg/dL Creatinine 0.64 (0.52-1.04) mg/dL Est GFR (CKD-EPI)AfAm >90 (>60 ml/min/1.73 sqM) Est GFR (CKD-EPI)NonAf >90 (>60 ml/min/1.73 sqM) Glucose 111 H (74-99) mg/dL Calcium 9.3 (8.4-10.2) mg/dL Total Bilirubin 0.4 (0.2-1.3) mg/dL Conjugated Bilirubin 0.0 (0.0-0.3) mg/dL Unconjugated Bilirubin 0.2 (0.0-1.1) mg/dL Delta Bilirubin 0.2 (0.0-0.2) mg/dL AST 42 H (14-36) U/L ALT 55 H (9-52) U/L Alkaline Phosphatase 72 (38-126) U/L Total Protein 7.5 (6.3-8.2) g/dL Albumin 4.5 (3.5-5.0) g/dL Lipase 48 (23-300) U/L HCG, Qual Not Detected Urine Color Colorless Urine Appearance Clear (Clear) Urine pH 6.5 (5.0-8.0) Ur Specific [place] 1.003 (1.001-1.035) Urine Protein Negative (Negative) Urine Glucose (UA) Negative (Negative) Urine Ketones Negative (Negative) Urine Blood Negative (Negative) Urine Nitrite Negative (Negative) Urine Bilirubin Negative (Negative) Urine Urobilinogen <2.0 (<2.0) mg/dL Ur Leukocyte Esterase Negative (Negative) Salicylates <1.0 mg/dL Urine Opiates Screen Not Detected (NotDetected) Ur Oxycodone Screen Not Detected (NotDetected) Urine Methadone Screen Not Detected (NotDetected) Ur Propoxyphene Screen Not Detected (NotDetected) Acetaminophen <10.0 ug/mL Ur Barbiturates Screen Not Detected (NotDetected) U Tricyclic Antidepress Not Detected (NotDetected) Ur Phencyclidine Scrn Not Detected (NotDetected) Ur Amphetamines Screen Not Detected (NotDetected) U Methamphetamines Scrn Not Detected (NotDetected) U Benzodiazepines Scrn Not Detected (NotDetected) Urine Cocaine Screen Not Detected (NotDetected) U Marijuana (THC) Screen Detected H (NotDetected) Serum Alcohol 232 H* mg/dL 09/20/18 Range/Units 21:40 WBC 10.5 (3.8-10.6) k/uL RBC 4.61 (3.80-5.40) m/uL Hgb 13.3 (11.4-16.0) gm/dL Hct 40.4 (34.0-46.0) % MCV 87.6 (80.0-100.0) fL MCH 28.8 (25.0-35.0) pg MCHC 32.9 (31.0-37.0) g/dL RDW 13.3 (11.5-15.5) % Plt Count 299 (150-450) k/uL Neutrophils % 72 % Lymphocytes % 23 % Monocytes % 3 % Eosinophils % 1 % Basophils % 0 % Neutrophils # 7.5 (1.3-7.7) k/uL Lymphocytes # 2.5 (1.0-4.8) k/uL Monocytes # 0.3 (0-1.0) k/uL Eosinophils # 0.1 (0-0.7) k/uL Basophils # 0.0 (0-0.2) k/uL Sodium (137-145) mmol/L Potassium (3.5-5.1) mmol/L Chloride (98-107) mmol/L Carbon Dioxide (22-30) mmol/L Anion Gap mmol/L BUN (7-17) mg/dL Creatinine (0.52-1.04) mg/dL Est GFR (CKD-EPI)AfAm (>60 ml/min/1.73 sqM) Est GFR (CKD-EPI)NonAf (>60 ml/min/1.73 sqM) Glucose (74-99) mg/dL Calcium (8.4-10.2) mg/dL Total Bilirubin (0.2-1.3) mg/dL Conjugated Bilirubin (0.0-0.3) mg/dL Unconjugated Bilirubin (0.0-1.1) mg/dL Delta Bilirubin (0.0-0.2) mg/dL AST (14-36) U/L ALT (9-52) U/L Alkaline Phosphatase (38-126) U/L Total Protein (6.3-8.2) g/dL Albumin (3.5-5.0) g/dL Lipase (23-300) U/L HCG, Qual Urine Color Urine Appearance (Clear) Urine pH (5.0-8.0) Ur Specific [place] (1.001-1.035) Urine Protein (Negative) Urine Glucose (UA) (Negative) Urine Ketones (Negative) Urine Blood (Negative) Urine Nitrite (Negative) Urine Bilirubin (Negative) Urine Urobilinogen (<2.0) mg/dL Ur Leukocyte Esterase (Negative) Salicylates mg/dL Urine Opiates Screen (NotDetected) Ur Oxycodone Screen (NotDetected) Urine Methadone Screen (NotDetected) Ur Propoxyphene Screen (NotDetected) Acetaminophen ug/mL Ur Barbiturates Screen (NotDetected) U Tricyclic Antidepress (NotDetected) Ur Phencyclidine Scrn (NotDetected) Ur Amphetamines Screen (NotDetected) U Methamphetamines Scrn (NotDetected) U Benzodiazepines Scrn (NotDetected) Urine Cocaine Screen (NotDetected) U Marijuana (THC) Screen (NotDetected) Serum Alcohol mg/dL Disposition Clinical Impression: Alcohol intoxication, Altered mental status, Anticholinergic drug overdose Disposition: ADMITTED IP TO THIS HOSP Referrals: None,Stated [Primary Care Provider] - 1-2 days Decision to Admit Reason: Admit from EC Decision Date: 09/20/18 Decision Time: 23:21
[2018-09-20 22:47] LABS: Acetaminophen <10.0 ug/mL; Albumin 4.5 g/dL (3.5-5.0); Anion Gap 15 mmol/L; Bilirubin, Delta 0.2 mg/dL (0.0-0.2); Bilirubin,Unconjugated 0.2 mg/dL (0.0-1.1); Blood Urea Nitrogen 9 mg/dL (7-17); Calcium 9.3 mg/dL (8.4-10.2); Carbon Dioxide 19 mmol/L (22-30); Chloride 107 mmol/L (98-107); Glucose 111 mg/dL (74-99); Lipase 48 U/L (23-300); Salicylate <1.0 mg/dL; Sodium 141 mmol/L (137-145); Total Bilirubin 0.4 mg/dL (0.2-1.3); Total Protein 7.5 g/dL (6.3-8.2)
--- NOTE | 2018-09-20 22:54 | CT ---
EXAM: CT Head Without Intravenous Contrast CLINICAL HISTORY: ITS.REASON CT Reason: Papilledema TECHNIQUE: Axial computed tomography images of the head/brain without intravenous contrast. CTDI is 49.27 mGy and DLP is 1166.4 mGy-cm. This CT exam was performed using one or more of the following dose reduction techniques: automated exposure control, adjustment of the mA and/or kV according to patient size, and/or use of iterative reconstruction technique. COMPARISON: No relevant prior studies available. FINDINGS: Brain: Unremarkable. No hemorrhage. No significant white matter disease. No edema. Ventricles: Unremarkable. No ventriculomegaly. Bones/joints: Unremarkable. No acute fracture. Soft tissues: Unremarkable. Sinuses: Unremarkable as visualized. No acute sinusitis. Mastoid air cells: Unremarkable as visualized. No mastoid effusion. IMPRESSION: No acute intracranial abnormality.
[2018-09-20 22:59] LABS: Alcohol 232 mg/dL
--- NOTE | 2018-09-20 22:59 | CT ---
EXAM: CT Abdomen and Pelvis With Intravenous Contrast CLINICAL HISTORY: ITS.REASON CT Reason: Pain TECHNIQUE: Axial computed tomography images of the abdomen and pelvis with intravenous contrast. CTDI is 8.97 mGy and DLP is 526 mGy-cm. This CT exam was performed using one or more of the following dose reduction techniques: automated exposure control, adjustment of the mA and/or kV according to patient size, and/or use of iterative reconstruction technique. COMPARISON: No relevant prior studies available. FINDINGS: Lung bases: Unremarkable. No mass. No consolidation. ABDOMEN: Liver: Unremarkable. No mass. Gallbladder and bile ducts: Unremarkable. No calcified stones. No ductal dilation. Pancreas: Unremarkable. No mass. No ductal dilation. Spleen: Unremarkable. No splenomegaly. Adrenals: Unremarkable. No mass. Kidneys and ureters: Unremarkable. No solid mass. No hydronephrosis. Stomach and bowel: Unremarkable. No obstruction. No mucosal thickening. PELVIS: Appendix: No findings to suggest acute appendicitis. Bladder: Unremarkable. No mass. Reproductive: 1.8 cm corpus luteal cyst in the right ovary. ABDOMEN and PELVIS: Intraperitoneal space: Unremarkable. No free air. No significant fluid collection. Bones/joints: Chronic appearing right lateral seventh and eighth rib fractures No dislocation. Soft tissues: Unremarkable. Vasculature: Unremarkable. No abdominal aortic aneurysm. Lymph nodes: Unremarkable. No enlarged lymph nodes. IMPRESSION: No acute findings.
[2018-09-20 23:00] LABS: ALT 55 U/L (9-52); AST 42 U/L (14-36); Alkaline Phosphatase 72 U/L (38-126)
[2018-09-20] MEDS ORDERED: SODIUM CHLORIDE 0.9% 1,000 ML IV STA (23:17)
[2018-09-20] MEDS ORDERED: ACETAMINOPHEN TAB 325 MG TAB PO PRN (23:17)
[2018-09-20] MEDS ORDERED: IBUPROFEN 400 MG TAB PO PRN (23:17)
[2018-09-20] MEDS ORDERED: NALOXONE 0.4 MG/ML 1 ML VIAL IV PRN (23:17)
[2018-09-20] MEDS ORDERED: LORazepam 2 MG/ML INJ IV STA (23:28)
--- NOTE | 2018-09-21 00:20 | P.HPIM ---
History of Present Illness H&P Date: 09/20/18 The patient is a 37 yo F with a PMH of GERD, chronic lower back pain, and EtOH abuse who presented to the ED in an agitated state via EMS. The patient initially mentioned to the ED staff that she felt she was withdrawing from her home meds Gabapentin and Flexiril, but later admitted to taking an unknown ("handful") amount of Benadryl to try and sleep. The patient was very agitated during the interview and the history was thereby limited. She denied any suicidal ideation or hx of suicide attempts in the past. She notes ocassional alcohol use, though admitted to drinking heavily 1-2x/month. She admitted to drinking heavily earlier today though unable to specify the amount. She also endorsed a chonic LUQ abdominal pain on-going for several years which she attributed to her GERD and possible gastric ulcer. She notes it was previously worked up in a hospital in [place] where she underwent an EGD and that she takes Ranitidine to control her symptoms w/ good result. She also endorsed feeling thirsty and having a dry mouth and repeatedly stated that she feels something is wrong with her. She remained agitated throughout the interview. She denied chest pain, SOB, fever, chills, cough, headache, or dizziness. She underwent an extensive evaluation in the ED w/ EtOH level 232, UTox positive for THC, AST 42, ALT 55, WBC 10.5, Brain CT unremarkable, and abdominal CT w/ contrast also unremarkable. The patient was given 1 mg of Ativan which alleviated her agitated slightly. She is being admitted to the medicine service for anticholinergic side-effects and alcohol intoxication. Review of Systems Pertinent positives and negatives as discussed in HPI, a complete review of systems was performed and all other systems are negative. Past Medical History Past Medical History: Fibromyalgia History of Any Multi-Drug Resistant Organisms: None Reported Past Surgical History: Section Additional Past Anesthesia/Blood Transfusion Reaction / Comment(s): Pt states she has never had surgery/anesthesia or blood Past Psychological History: No Psychological Hx Reported Smoking Status: Current every day smoker Past Alcohol Use History: Rare Past Drug Use History: None Reported - Past Family History Father Family Medical History: No Reported History Additional Family Medical History / Comment(s): Pt states father is healthy. Mother Family Medical History: No Reported History Additional Family Medical History / Comment(s): Mother is healthy Medications and Allergies Home Medications Medication Instructions Recorded Confirmed Type Cyclobenzaprine [Flexeril] 10 mg PO HS #7 tab 05/08/18 09/20/18 Rx Gabapentin [Neurontin] 300 mg PO HS 09/20/18 09/20/18 History Allergies Allergy/AdvReac Type Severity Reaction Status Date / Time Penicillins Allergy Rash/Hives Verified 09/20/18 22:08 Physical Exam Vitals: Vital Signs Temp Pulse Resp BP Pulse Ox 09/20/18 23:19 104 H 20 127/94 99 09/20/18 21:18 97.8 F 111 H 20 118/87 98 Intake and Output 09/20/18 09/20/18 09/21/18 14:59 22:59 06:59 Other: Weight 63.503 kg General: non toxic, agitated, appears at stated age, normal weight Derm: no unusual rashes/lesions no unusual ecchymoses, warm, dry Head: atraumatic, normocephalic, symmetric Eyes: EOMI, no lid lag, anicteric sclera, pupils slightly dilated at 5-6 mm ENT: Nose and ears atraumatic, no thrush, no pharyngeal erythema Neck: No thyromegaly, no cervical lymphadenopathy, trachea midline, supple Mouth: no lip lesion, mucus membranes very dry Cardiovascular: S1S2 reg, tachycardic no murmur, positive posterior tibial pulse bilateral, no edema, capillary refill less than 2 seconds Lungs: CTA bilateral, no rhonchi, no rales , no accessory muscle use Abdominal: soft, nontender to palpation, no guarding, no appreciable organomegaly, normal bowel sounds Ext: no gross muscle atrophy, muscle strength 5 out of 5 in all 4 extremities grossly, no contractures, Neuro: CN II-XI grossly intact, light touch intact all 4 extremities, finger to nose within normal limits, Psych: Alert, oriented to person, place, and time, agitated Results CBC & Chem 7: 09/20/18 21:40 09/20/18 21:40 Labs: Abnormal Lab Results - Last 24 Hours (Table) 09/20/18 09/20/18 Range/Units 21:00 21:40 Carbon Dioxide 19 L (22-30) mmol/L Glucose 111 H (74-99) mg/dL AST 42 H (14-36) U/L ALT 55 H (9-52) U/L U Marijuana (THC) Screen Detected H (NotDetected) Serum Alcohol 232 H* mg/dL Assessment and Plan Plan: Benadryl overdose -- anticholinergic poisoning -Will c/w IVFs 100 cc/hr -Ativan prn -Obtain ECG -Will consider Physiostigmine if symptoms worsen -Fall, Seizure precautions -Cardiac monitoring EtOH intoxication -Thiamine, Folate, MV -Aspiration, seizure, fall precautions GERD w/ possible hx of ulcer -Protonix Chronic lower back pain -Will hold off on Gabapentin and Flexiril for now in setting of active [employer] symptoms DVT//GI prophylaxis -Heparin -Protonix The patient is admitted with an anticipated greater than 2 midnight stay for evaluation of anticholinergic poisoning. CODE STATUS:Full Code Discussed with: Patient Anticipated discharge date: 09/22/[address]: Home A total of 35 minutes was spent on the care of this complex patient more than 50% of the time was spent in counseling and care coordination.
[2018-09-21 01:50] VITALS: BMI 22.6
[2018-09-21] MEDS: LORazepam 2 MG/ML INJ IV PRN ×10 (02:01→17:38)
[2018-09-21] MEDS: ONDANSETRON 4 MG/2 ML VIAL IVP PRN ×2 (02:19→12:59)
[2018-09-21 07:15] LABS: Basophils % (A) 0 %; Eosinophils % (A) 0 %; HCT 40.5 % (34.0-46.0); HGB 13.2 gm/dL (11.4-16.0); Lymphocytes # (A) 2.4 k/uL (1.0-4.8); Lymphocytes % (A) 25 %; MCH 28.6 pg (25.0-35.0); MCHC 32.7 g/dL (31.0-37.0); MCV 87.6 fL (80.0-100.0); Mean Platelet Volume 7.2; Monocytes # (A) 0.4 k/uL (0-1.0); Monocytes % (A) 4 %; Neutrophils # (A) 6.9 k/uL (1.3-7.7); Neutrophils % (A) 70 %; Platelet Count 324 k/uL (150-450); RBC 4.62 m/uL (3.80-5.40); RDW 13.5 % (11.5-15.5); WBC 9.9 k/uL (3.8-10.6)
[2018-09-21] MEDS: PANTOPRAZOLE 40 MG TABLET PO SCH ×2 (07:32→07:33)
[2018-09-21] MEDS: HEPARIN SODIUM,PORCINE 5,000 UNIT/ML 1 ML VIAL SQ SCH ×2 (07:33→21:02)
[2018-09-21 07:36] LABS: Anion Gap 13 mmol/L; Blood Urea Nitrogen 11 mg/dL (7-17); Calcium 9.4 mg/dL (8.4-10.2); Carbon Dioxide 21 mmol/L (22-30); Chloride 106 mmol/L (98-107); Glucose 73 mg/dL (74-99); Potassium 4.3 mmol/L (3.5-5.1); Sodium 140 mmol/L (137-145)
[2018-09-21] MEDS ORDERED: SODIUM CHLORIDE 0.9% 1,000 ML IV ONE (08:38)
[2018-09-21] MEDS ORDERED: LORazepam 2 MG/ML INJ IV PRN ×5 (10:33→15:06)
[2018-09-21] MEDS: FOLIC ACID 1 MG TAB PO SCH (12:16)
[2018-09-21] MEDS: MULTIVITAMINS, THERA 1 EACH TAB PO SCH (12:16)
[2018-09-21] MEDS: GABAPENTIN 300 MG CAP PO SCH ×2 (13:00→21:02)
[2018-09-21] MEDS ORDERED: LORazepam 2 MG/ML INJ IV STA (14:24)
--- NOTE | 2018-09-21 15:03 | P.PN ---
Subjective Progress Note Date: 09/21/18 The patient is a 37-year-old female that was admitted with acute alcohol intoxication she has a history of fibromyalgia chronic pain chronic fatigue syndrome, anxiety and depression. The patient denies any suicidal ideation, and reports taking 6 25 mg Benadryl tabs because she was unable to fal l asleep. The patient reports that she had recently ran out of her gabapentin and thought that she may have been withdrawing from the medication. She reports drinking approximately a pint of whiskey. She reports ongoing elevated CIWA score ~ 14 and is receiving Ativan per protocol. The patient is tearful , flat affect and depressed Objective - Vital Signs Vital signs: Vital Signs Temp 98.1 F 09/21/18 14:08 Pulse 135 H 09/21/18 14:08 Resp 15 09/21/18 07:20 BP 142/86 09/21/18 14:08 Pulse Ox 98 09/21/18 14:08 Intake & Output 09/20/18 09/21/18 09/21/18 18:59 06:59 18:59 Intake Total 1000 Balance 1000 Weight 63.503 kg Intake: Amount of Fluid Infused ( 1000 ml) - Exam Constitutional: No acute distress, conversant, pleasant Eyes: Anicteric sclerae, moist conjunctiva, no lid-lag, PERRLA ENMT: NC/AT,Oropharynx clear, no erythema, exudates Neck:Supple, FROM, no masses, or JVD, No carotid bruits; No thyromegaly Lungs: Clear to auscultation, Clear to percussion, Normal respiratory effort, no accessory muscle use Cardiovascular: Heart regular rhythm and tachycardic, No murmurs, gallops, or rubs no peripheral edema Abdominal: Soft tender to palpation in the left lower quadrant, nom distended, no guarding, no rebound or rigidity, Normoactive bowel sounds No hepatomegaly, No splenomegaly, No palpable mass No abdominal wall hernia noted Skin: Normal temperature, tone, texture, turgor, No induration No subcutaneous nodules, No rash, lesions, No ulcers Extremities:No digital cyanosis No clubbing, Pedal pulses intact and symmetrical Radial pulses intact and symmetrical Normal gait and station, No calf tenderness Psychiatric: Alert and oriented to person, place and time, flat affect, tearful emotional Neuro: Tremulous, brisk patellar reflexes, cranial nerves II through XII grossly intact - Labs CBC & Chem 7: 09/21/18 06:34 09/21/18 06:34 Labs: Abnormal Lab Results - Last 24 Hours (Table) 09/20/18 09/20/18 09/21/18 Range/Units 21:00 21:40 06:34 Carbon Dioxide 19 L 21 L (22-30) mmol/L Glucose 111 H 73 L (74-99) mg/dL AST 42 H (14-36) U/L ALT 55 H (9-52) U/L U Marijuana (THC) Screen Detected H (NotDetected) Serum Alcohol 232 H* mg/dL Assessment and Plan (1) Metabolic encephalopathy Narrative/Plan: * Resolved previously attributed to daily alcohol intoxication superimposed on unintentional overdose with Benadryl * Continue to monitor CT of the head was negative for any acute intracranial pathology Current Visit: Yes Status: Acute Code(s): G93.41 - METABOLIC ENCEPHALOPATHY SNOMED Code(s): 72951218 (2) Anxiety and depression Narrative/Plan: * Consult psychiatry patient may need short acting benzodiazepine her panic attacks Current Visit: Yes Status: Acute Code(s): F41.9 - ANXIETY DISORDER, UNSPECIFIED; F32.9 - MAJOR DEPRESSIVE DISORDER, SINGLE EPISODE, UNSPECIFIED SNOMED Code(s): 99230329 (3) Fibromyalgia Narrative/Plan: * Resume gabapentin Current Visit: Yes Status: Acute Code(s): M79.7 - FIBROMYALGIA SNOMED Code(s): 804273082 (4) Alcoholic intoxication Narrative/Plan: * Resolved, serum alcohol level less than 10 Current Visit: Yes Status: Resolved Code(s): F10.929 - ALCOHOL USE, UNSPECIFIED WITH INTOXICATION, UNSPECIFIED SNOMED Code(s): 97127167 (5) Anticholinergic drug overdose Narrative/Plan: * Possible toxemia persisting superimposed on alcohol withdrawal * Continue IV fluids, continue Ativan Current Visit: Yes Status: Acute Code(s): T44.3X1A - POISONING BY OTH PARASYMPATH AND SPASMOLYTICS, ACC, INIT SNOMED Code(s): 902817629 (6) Smoker Current Visit: Yes Status: Acute Code(s): F17.200 - NICOTINE DEPENDENCE, UNSPECIFIED, UNCOMPLICATED SNOMED Code(s): 55685001 (7) Alcohol withdrawal Narrative/Plan: * Continue CIWA symptom triggered withdrawal scale * Initiate Librium therapy * Continue to monitor Current Visit: Yes Status: Acute Code(s): F10.239 - ALCOHOL DEPENDENCE WITH WITHDRAWAL, UNSPECIFIED SNOMED Code(s): 229430310 Plan: * Patient continues to be tachycardic blood pressure slightly elevated possibly secondary to alcohol withdrawal superimposed on chronic anxiety * Continue symptom triggered CIWA protocol with Librium scheduled * Follow up with consultants recommendations * Anticipated discharge 1-2 days
--- NOTE | 2018-09-21 15:05 | P.CN ---
Psychiatric Consult - . Consult date: 09/21/18 Consult:: 09/21/18 13:42 alcohol Assessment and Plan Assessment: The patient is a 37 yo F with a PMH of GERD, chronic lower back pain, and EtOH abuse who presented to the ED in an agitated state via EMS. The patient initially mentioned to the ED staff that she felt she was withdrawing from her home meds Gabapentin and Flexiril, but later admitted to taking an unknown ("handful") amount of Benadryl to try and sleep. The patient was very agitated during the interview and the history was thereby limited. She denied any suicidal ideation or hx of suicide attempts in the past. She notes ocassional alcohol use, though admitted to drinking heavily 1-2x/month. She admitted to drinking heavily earlier today though unable to specify the amount. She also endorsed a chonic LUQ abdominal pain on-going for several years which she attributed to her GERD and possible gastric ulcer. She notes it was previously worked up in a hospital in [place] where she underwent an EGD and that she takes Ranitidine to control her symptoms w/ good result. She also endorsed feeling thirsty and having a dry mouth and repeatedly stated that she feels something is wrong with her. She remained agitated throughout the interview. She denied chest pain, SOB, fever, chills, cough, headache, or dizziness. She underwent an extensive evaluation in the ED w/ EtOH level 232, UTox positive for THC, AST 42, ALT 55, WBC 10.5, Brain CT unremarkable, and abdominal CT w/ contrast also unremarkable. The patient was given 1 mg of Ativan which alleviated her agitated slightly. She is being admitted to the medicine service for anticholinergic side-effects and alcohol intoxication. Home Medications Medication Instructions Recorded Confirmed Gabapentin [Neurontin] 300 mg PO HS 09/20/18 09/20/18 Previous Rx's Medication Instructions Recorded Cyclobenzaprine [Flexeril] 10 mg PO HS #7 tab 05/08/18 Allergies Allergy/AdvReac Type Severity Reaction Status Date / Time Penicillins Allergy Rash/Hives Verified 09/20/18 22:08 . Past Medical History Past Medical History: Fibromyalgia History of Any Multi-Drug Resistant Organisms: None Reported Past Surgical History: Section Additional Past Anesthesia/Blood Transfusion Reaction / Comment(s): Pt states she has never had surgery/anesthesia or blood Past Psychological History: No Psychological Hx Reported Smoking Status: Current every day smoker Past Alcohol Use History: Rare Past Drug Use History: None Reported - Past Family History Father Family Medical History: No Reported History Additional Family Medical History / Comment(s): Pt states father is healthy. Mother Family Medical History: No Reported History Additional Family Medical History / Comment(s): Mother is healthy Mental Status Examination - General Appearance: [well groomedappears younger than stated age] Speech/Language: [spontaneous Attitude/Behavior: [cooperative Mood: [depressed, anxious, fearful, hopelessness] Affect: [full range Orientation: [time, person, place situation] Thought Content: [wnl Risk Factors: [She is not suicidal (ideations, plan), and/or Homicidal (ideations, plan), other] Perception: [wnl Thought Process: wnl Concentration/Attention Span: [wnl,] [Per observation and interview with the Recent Memory: [wnl Remote Memory: [wnl [past events, as related history] Intelligence: [ average] [based on history, based on vocabulary, syntax, grammar, and content] Judgement: [good] [per patient's behavior/history of present illness] Insight: [good] [understanding severity of illness/history of present illness] Psychiatric impression: History of major depressive disorder which is being treated for with the above antidepressant also history of fibromyalgia which can include anxiety and depressive symptoms. Not a candidate for [address] [place] [address]. Needs outpatient and directed her to contact [facility] for partial programs near [facility] Bandar Jang D.O., PhD. (1) Alcoholic intoxication Current Visit: Yes Status: Resolved Code(s): F10.929 - ALCOHOL USE, UNSPECIFIED WITH INTOXICATION, UNSPECIFIED SNOMED Code(s): 86039315 Time with Patient: Less than 30
[2018-09-21] MEDS ORDERED: THIAMINE 100 MG/ML 2 ML VIAL IM STA (15:06)
[2018-09-21] MEDS: THIAMINE 100 MG TAB PO SCH (15:30)
[2018-09-21] MEDS: NICOTINE 14MG/24HR PATCH TRANSDERM SCH (15:30)
[2018-09-21] MEDS: chlordiazePOXIDE 25 MG CAP PO SCH ×2 (15:30→21:02)
[2018-09-22] MEDS: chlordiazePOXIDE 25 MG CAP PO SCH ×3 (08:52→21:04)
[2018-09-22] MEDS: NICOTINE 14MG/24HR PATCH TRANSDERM SCH (08:53)
[2018-09-22] MEDS: GABAPENTIN 300 MG CAP PO SCH ×3 (08:53→21:04)
[2018-09-22] MEDS: HEPARIN SODIUM,PORCINE 5,000 UNIT/ML 1 ML VIAL SQ SCH ×2 (08:53→21:04)
[2018-09-22] MEDS: PANTOPRAZOLE 40 MG TABLET PO SCH (09:00)
[2018-09-22] MEDS: LORazepam 2 MG/ML INJ IV PRN ×3 (13:57→19:33)
[2018-09-22] MEDS: FOLIC ACID 1 MG TAB PO SCH (13:59)
[2018-09-22] MEDS: THIAMINE 100 MG TAB PO SCH ×2 (13:59→17:06)
[2018-09-22] MEDS: MULTIVITAMINS, THERA 1 EACH TAB PO SCH (13:59)
--- NOTE | 2018-09-22 17:01 | P.PN ---
Subjective Progress Note Date: 09/22/18 Principal diagnosis: confusion Patient is a 37-year-old female past medical history of GERD, chronic low back pain, fibromyalgia, and chronic EtOH abuse who presented to the emergency department via EMS in an agitated state. Patient admitted to taking a handful Benadryl to try to sleep. She admitted to drinking heavily for the last 1-2 months. 2 underwent an extensive evaluation the emergency department her alcohol level was 232, urine tox was positive for THC, AST 42, ALT 55, white blood cell count 10.5, CT brain unremarkable, CT abdomen with contrast unremarka ble. Patient was given 1 mg of Ativan which alleviated her agitated state. She was admitted to the medical system service for monitoring of anticholinergic side effects and alcohol intoxication. She was seen by psychiatry and was determined appropriate for counseling in the outpatient setting as well as substance abuse referral. By the morning of 09/21 she had started having significant alcohol withdrawal symptoms initiating the use of Ativan. Scheduled Librium was added. Patient seen and examined at bedside. She is meeting with social work and is tearful. She reports she is feeling better after receiving a dose of Ativan. This morning she felt tremulous, anxious, nauseous, and diaphoretic. She states this is consistent with alcohol withdrawal. She has no other complaints current ly. She does follow with Dr. Vinson in the outpatient setting. She also does have a pain management physician as well as a psychiatrist. Objective - Vital Signs Vital signs: Vital Signs Temp 99.8 F H 09/22/18 07:42 Pulse 117 H 09/22/18 09:07 Resp 17 09/22/18 07:42 BP 138/91 09/22/18 07:42 Pulse Ox 98 09/22/18 07:42 Intake & Output 09/21/18 09/22/18 09/22/18 18:59 06:59 18:59 Intake Total 650 Balance 650 Intake: Oral 650 Other: # Voids 2 2 - Exam General: Shaky, ill-appearing, no distress, appears at stated age Derm: warm, dry Head: atraumatic, normocephalic, symmetric Eyes: EOMI, no lid lag, anicteric sclera Mouth: no lip lesion, mucus membranes moist Cardiovascular: S1S2 reg, no murmur, positive posterior tibial pulse bilateral, Lungs: CTA bilateral, no rhonchi, no rales , no accessory muscle use Abdominal: soft, nontender to palpation, no guarding, no appreciable organomegaly Ext: no gross muscle atrophy, no edema, no contractures Neuro: CN II-XI grossly intact, no focal neuro deficits, + tremors Psych: Alert, oriented, upset and crying - Labs CBC & Chem 7: 09/21/18 06:34 09/21/18 06:34 Assessment and Plan Assessment: Acute alcohol withdrawal in the setting of acute alcohol intoxication on arrival to the ER -Continue with Librium and CIWA protocol -Thiamine and folic acid -Social work recommendations -Outpatient therapy recommendations Metabolic encephalopathy due to above -Treatment as above Anticholinergic an intentional overdose -Seen by psychiatry and cleared for outpatient evaluation Fibromyalgia -Resume home gabapentin -Follow up with outpatient pain management DVT prophylaxis: SCDs Discussed with: Patient, social work Anticipated discharge: [address]: Home A total of 30 minutes was spent on the care of this complex patient more than 50% of the time was spent in counseling and care coordination.
[2018-09-23 01:18] VITALS: RESP 16; TEMP 98.8
[2018-09-23] MEDS: NICOTINE 14MG/24HR PATCH TRANSDERM SCH (08:07)
[2018-09-23] MEDS: chlordiazePOXIDE 25 MG CAP PO SCH (08:08)
[2018-09-23] MEDS: GABAPENTIN 300 MG CAP PO SCH (08:08)
[2018-09-23] MEDS: HEPARIN SODIUM,PORCINE 5,000 UNIT/ML 1 ML VIAL SQ SCH (08:10)
[2018-09-23] MEDS: PANTOPRAZOLE 40 MG TABLET PO SCH (08:10)
[2018-09-23 09:09] VITALS: BP 125/89; PULSE 99
[2018-09-23] MEDS: THIAMINE 100 MG TAB PO SCH (11:46)
[2018-09-23] MEDS: FOLIC ACID 1 MG TAB PO SCH (11:46)
[2018-09-23] MEDS: MULTIVITAMINS, THERA 1 EACH TAB PO SCH (11:46)
--- NOTE | 2018-09-23 16:42 | P.DS ---
Providers Date of admission: 09/20/18 23:17 Expected date of discharge: 09/23/18 Attending physician: Christina Pulliam MD Consults: 09/21/18 11:20 Consult Physician Routine Consulting Provider: Bandar Jang Consult Reason/Comments: anxiety/depression/panic attacks Do you want consulting provider notified?: Yes Primary care physician: Stated None Hospital Course: Discharge Diagnosis: Acute alcohol intoxication ETOH withdrawal Metabolic encephalopathy Anticholenegric overdose, cleared by psych Fibromyalgia Hospital Course: Patient is a 37-year-old female past medical history of GERD, chronic low back pain, fibromyalgia, and chronic EtOH abuse who presented to the emergency department via EMS in an agitated state. Patient admitted to taking a handful Benadryl to try to sleep. She admitted to drinking heavily for the last 1-2 months. 2 underwent an extensive evaluation the emergency department her alcohol level was 232, urine tox was positive for THC, AST 42, ALT 55, white blood cell count 10.5, CT brain unremarkable, CT abdomen with contrast unremarkable. Patient was given 1 mg of Ativan which alleviated her agitated state. She was admitted to the medical system service for monitoring of anticholinergic side effects and alcohol intoxication. She was seen by psychiatry and was determined appropriate for counseling in the outpatient setting as well as substance abuse referral. By the morning of 09/21 she had started having significant alcohol withdrawal symptoms initiating the use of Ativan. Scheduled Librium was added. She had been sober since may and then ran out of her gabapentin and cymbalta over weekend. She started drinking as she had withdrawal symptoms from the gabapentin and it quickly became out of control. She is already established with outpatient psych, AA, and she is going to be doing a day program for alcohol. She was given a 7 day Rx for her gabape ntin until she could get back into pain management. She will take 3 additional doses of librium at home to combat any residual alcohol withdrawal. She is aware that if she combines this with Alcohol this could lead to overdose and . If she is slight sedated she will stop this medication. She was discharged home in stable condition. She will follow with her PCP in 1-2 days and her pain manage ment doctor next week. Patient seen and examined at bedside. No tremors, anxiety, nausea, or diaphoresis. Vital signs reviewed and stable. General: non toxic, no distress, appears at stated age Derm: warm, dry Head: atraumatic, normocephalic, symmetric Eyes: EOMI, no lid lag, anicteric sclera Mouth: no lip lesion, mucus membranes moist Cardiovascular: S1S2 reg, no murmur, positive posterior tibial pulse bilateral, Lungs: CTA bilateral, no rhonchi, no rales , no accessory muscle use Abdominal: soft, nontender to palpation, no guarding, no appreciable organomegaly Ext: no gross muscle atrophy, no edema, no contractures Neuro: CN II-XI grossly intact, no focal neuro deficits Psych: Alert, oriented, appropriate affect A total of 35 minutes of time were spent preparing this complex discharge summary . Pertinent Studies: CT abdomen and pelvis- no acute findings Head CT- no acute process. Plan - Discharge Summary Discharge Rx Participant: No New Discharge Prescriptions: New chlordiazePOXIDE HCl [Librium] 10 mg PO Q12H 2 Days #3 capsule Continue Cyclobenzaprine [Flexeril] 10 mg PO HS #7 tab DULoxetine HCL [Cymbalta] 90 mg PO HS Gabapentin [Neurontin] 300 mg PO TID #21 capsule Discharge Medication List Cyclobenzaprine [Flexeril] 10 mg PO HS #7 tab 05/08/18 [Rx] DULoxetine HCL [Cymbalta] 90 mg PO HS 09/22/18 [History] Gabapentin [Neurontin] 300 mg PO TID #21 capsule 09/23/18 [Rx] chlordiazePOXIDE HCl [Librium] 10 mg PO Q12H 2 Days #3 capsule 09/23/18 [Rx] Follow up Appointment(s)/Referral(s): None,Stated [Primary Care Provider] - 1-2 days Everett Vinson DO [REFERRING] - 09/30/18 1:30 pm Patient Instructions/Handouts: Abuse of Alcohol (DC) Activity/Diet/Wound Care/Special Instructions: Regular diet Activity as tolerated Do not combine Librium with alcohol as this may lead to overdose including . If you feel lethargic while taking Librium please stop this medication. Discharge Disposition: HOME SELF-CARE
== END 2018-09-23 12:05 | disposition home or self-care (01) | DRG 917 ==
LOC: EC 21:13 → 4SSUR 23:17
PROVIDERS: ADMIT Internal Medicine; ATTEND Internal Medicine
DX: T45.0X1A Poisoning by antiallergic and antiemetic drugs, accidental (unintentional), initial encounter (principal); G93.41 Metabolic encephalopathy; F10.239 Alcohol dependence with withdrawal, unspecified; F10.229 Alcohol dependence with intoxication, unspecified; F17.200 Nicotine dependence, unspecified, uncomplicated; M79.7 Fibromyalgia; Y90.7 Blood alcohol level of 200-239 mg/100 ml; R74.8 Abnormal levels of other serum enzymes; K21.9 Gastro-esophageal reflux disease without esophagitis; F32.9 Major depressive disorder, single episode, unspecified; G89.29 Other chronic pain; M54.5 Low back pain; R53.82 Chronic fatigue, unspecified; F41.0 Panic disorder [episodic paroxysmal anxiety]; Z79.899 Other long term (current) drug therapy; Z88.0 Allergy status to penicillin
CPT/HCPCS: 36415; 70450; 74177; 80048; 80076; 80306; 80320; 80329; 81003; 83520; 83690; 84703; 85025; 96361; 96374; 99285

== ENCOUNTER 2020-08-12 10:01 | Emergency (ER) | payer BC ==
[2020-08-12 10:20] VITALS: RESP 18; TEMP 99.1
[2020-08-12] MEDS ORDERED: SODIUM CHLORIDE 0.9% 1,000 ML IV ONE (10:50)
[2020-08-12 11:04] LABS: Appearance,Urine Clear (Clear); Bilirubin,Urine Negative (Negative); Blood,Urine Negative (Negative); Color,Urine Colorless; Glucose,Urine (UA) Negative (Negative); Ketones,Urine Negative (Negative); Leukocyte Esterase,Urine Negative (Negative); Nitrite,Urine Negative (Negative); Protein,Urine Negative (Negative); Specific Gravity,Urine 1.002 (1.001-1.035); Urobilinogen,Urine <2.0 mg/dL (<2.0)
[2020-08-12 11:13] LABS: Basophils % (A) 0 %; Eosinophils # (A) 0.1 k/uL (0-0.7); Eosinophils % (A) 1 %; HCT 40.3 % (34.0-46.0); HGB 13.5 gm/dL (11.4-16.0); Lymphocytes # (A) 1.8 k/uL (1.0-4.8); Lymphocytes % (A) 16 %; MCH 29.6 pg (25.0-35.0); MCHC 33.5 g/dL (31.0-37.0); MCV 88.4 fL (80.0-100.0); Mean Platelet Volume 7.1; Monocytes # (A) 0.4 k/uL (0-1.0); Monocytes % (A) 3 %; Neutrophils # (A) 8.5 k/uL (1.3-7.7); Neutrophils % (A) 78 %; Platelet Count 225 k/uL (150-450); RBC 4.56 m/uL (3.80-5.40); RDW 12.9 % (11.5-15.5); WBC 10.9 k/uL (3.8-10.6)
[2020-08-12 11:24] LABS: ALT 15 U/L (4-34); AST 19 U/L (14-36); African American GFR (CKD) >90 (>60 ml/min/1.73 sqM); Albumin 4.3 g/dL (3.5-5.0); Alkaline Phosphatase 54 U/L (38-126); Anion Gap 9 mmol/L; Blood Urea Nitrogen 10 mg/dL (7-17); Calcium 9.3 mg/dL (8.4-10.2); Carbon Dioxide 25 mmol/L (22-30); Chloride 104 mmol/L (98-107); Glucose 135 mg/dL (74-99); Non-African American GFR(CKD) >90 (>60 ml/min/1.73 sqM); Potassium 3.9 mmol/L (3.5-5.1); Sodium 138 mmol/L (137-145); Total Bilirubin 0.4 mg/dL (0.2-1.3); Total Protein 7.3 g/dL (6.3-8.2)
[2020-08-12 11:32] LABS: INR 0.9 (<1.2); Partial Thromboplastin Time 22.7 sec (22.0-30.0); Prothrombin Time 10.2 sec (9.0-12.0)
[2020-08-12 12:17] VITALS: BP 124/81; PULSE 67
--- NOTE | 2020-08-12 12:21 | US ---
EXAMINATION TYPE: US transvaginal DATE OF EXAM: 08/12/2020 COMPARISON: None CLINICAL HISTORY: Pelvic pain; vaginal bleeding. EC patient with unusual vaginal bleeding on possibly Day 1 LMP; patient stated had blood clots with possible mucus contents noted yesterday with internal vaginal lump. Patient does not feel internal mass today, but c/o vaginal soreness and pelvic crampin g TECHNIQUE: TV US per EC physician Transvaginal sonographic images were medically necessary to better assess the following anatomy: endometrium; , C- Section delivery Date of LMP: approximately 08/11/2020 EXAM MEASUREMENTS: Uterus: 7.4 x 5.0 x4.2 cm Endometrial Stripe: 0.6 cm Right Ovary: 2.7 x 2.3 x 1.6 cm Left Ovary: 3.1 x 3.2 x 2.7 cm 1. Uterus: Anteverted; C section scar is seen in JOAN; multiple small Nabothian Cysts are seen with l argest = 0.4 x 0.3 x 0.2cm 2. Endometrium: thickness is wnl for approximately Day 2 LMP. 3. Right Ovary: multiple follicles images with largest =0.6 x 0.7 x 0.6cm 4. Left Ovary: multifollicular with largest as involuting cyst = 2.2 x 1.9 x 1.9cm with peripheral r ing of color flow Spectral, color and waveform doppler imaging shows good arterial and venous flow within the ovaries ; there is no evidence for ovarian torsion. 5. Bilateral Adnexa: wnl 6. Posterior cul-de-sac: small amount of free fluid is noted here = 1.1 x 0.8 x 2.3cm. IMPRESSION: No significant abnormality seen.
--- NOTE | 2020-08-12 13:01 | ED ---
Skin/Abscess/FB HPI - General Chief complaint: Skin/Abscess/Foreign Body Stated complaint: Female UG Time Seen by Provider: 08/12/20 10:31 Source: patient Mode of arrival: ambulatory Limitations: no limitations - History of Present Illness Initial comments: 39 year-old female patient presents to the emergency department for evaluation of vaginal bleeding, pelvic discomfort, and lump to her vagina. Patient states that she started having dark brown vaginal bleeding a couple of days ago. States that this persisted which is unusual for her normal periods. States she is due for her normal period around this time. States today in the shower she was exploring area and felt a lump just inside of her vaginal canal. States that she had her feel he felt that as well. States that one point should have some clear fluid draining from the vagina. Denies significant vaginal pain. States she is having increased pelvic cramping. States her per iods have been heavier and her cramping worse over the last 4 months. States she has not seen a core analysis operator for the last couple of years. Denies chance of . States she has not been sexually active for the last 6 months due to some chronic back pain and issues. Patient denies any recent rash, fever, chills, cough, shortness of breath, chest pain, vomiting, diarrhea, constipation, back pain, numbness, tingling, dizziness, weakness, hematuria, dysuria, urinary urgency, urinary frequency, headache, visual changes, or any other complaints. - Related Data Home Medications Medication Instructions Recorded Confirmed DULoxetine HCL [Cymbalta] 90 mg PO HS 09/22/18 09/22/18 Previous Rx's Medication Instructions Recorded Cyclobenzaprine [Flexeril] 10 mg PO HS #7 tab 05/08/18 Gabapentin [Neurontin] 300 mg PO TID #21 capsule 09/23/18 chlordiazePOXIDE HCl [Librium] 10 mg PO Q12H 2 Days #3 capsule 09/23/18 Allergies Allergy/AdvReac Type Severity Reaction Status Date / Time Penicillins Allergy Rash/Hives Verified 08/12/20 10:20 Review of Systems ROS Statement: Those systems with pertinent positive or pertinent negative responses have been documented in the HPI. ROS Other: All systems not noted in ROS Statement are negative. Past Medical History Past Medical History: Fibromyalgia, Rheumatoid Arthritis (RA) History of Any Multi-Drug Resistant Organisms: None Reported Past Surgical History: Section Additional Past Anesthesia/Blood Transfusion Reaction / Comment(s): Pt states sh e has never had surgery/anesthesia or blood Past Psychological History: Anxiety, Depression Smoking Status: Current every day smoker Past Alcohol Use History: Rare Past Drug Use History: Marijuana - Past Family History Father Family Medical History: No Reported History Additional Family Medical History / Comment(s): Pt states father is healthy. Mother Family Medical History: No Reported History Additional Family Medical History / Comment(s): Mother is healthy General Exam Limitations: no limitations General appearance: alert, in no apparent distress, other (This is a well- developed, well-nourished adult female patient in no acute distress. Vital signs upon presentation are temperature 99.1F, pulse 116, respirations 18, blood pressure 134/93, pulse ox 99% on room air.) Eye exam: Present: normal appearance, PERRL, EOMI. Absent: scleral icterus, conjunctival injection, periorbital swelling ENT exam: Present: normal exam, normal oropharynx, mucous membranes moist Respiratory exam: Present: normal lung sounds bilaterally. Absent: respiratory distress, wheezes, rales, rhonchi, stridor Cardiovascular Exam: Present: regular rate, normal rhythm, normal heart sounds. Absent: systolic murmur, diastolic murmur, rubs, gallop, clicks GI/Abdominal exam: Present: soft, tenderness (Suprapubic), normal bowel sounds. Absent: distended, guarding, rebound, rigid External exam: Present: normal external exam Speculum exam: Present: normal speculum exam, vaginal bleeding (Mild dark red from the cervical os), other (No masses, cysts, or lumps noted.) By manual exam: Present: normal by manual exam. Absent: cervical motion tenderness, adnexal tenderness Back exam: Present: normal inspection. Absent: CVA tenderness (R), CVA tenderness (L) Neurological exam: Present: alert, oriented X3, CN II-XII intact Psychiatric exam: Present: normal affect, normal mood Skin exam: Present: warm, dry, intact, normal color. Absent: rash Course Vital Signs 08/12/20 08/12/20 10:14 12:16 Temperature 99.1 F 99.1 F Pulse Rate 116 H 67 Respiratory 18 18 Rate Blood Pressure 134/93 124/81 O2 Sat by Pulse 99 100 Oximetry Medical Decision Making - Medical Decision Making 39-year-old female patient presents to the emergency department today for evaluation of vaginal bleeding, pelvic pain, and lump to the vagina. Physical examination was unremarkable. She did have some suprapubic discomfort upon palpation. Pelvic exam was performed there is no abnormal vaginal mass or cervical mass identified. Ultrasound was obtained and was negative. Most likely bleeding and cramping is related to her usual menstrual cycle. She will be discharged up with a core analysis operator for further evaluation. Return parameters were discussed in detail. She verbalizes understanding and agrees with this plan. Case discussed with my attending Dr. Koehler. - Lab Data Result diagrams: 08/12/20 11:09 08/12/20 11:09 Lab Results 08/12/20 08/12/20 08/12/20 Range/Units 10:59 10:59 11:09 WBC 10.9 H (3.8-10.6) k/uL RBC 4.56 (3.80-5.40) m/uL Hgb 13.5 (11.4-16.0) gm/dL Hct 40.3 (34.0-46.0) % MCV 88.4 (80.0-100.0) fL MCH 29.6 (25.0-35.0) pg MCHC 33.5 (31.0-37.0) g/dL RDW 12.9 (11.5-15.5) % Plt Count 225 (150-450) k/uL MPV 7.1 Neutrophils % 78 % Lymphocytes % 16 % Monocytes % 3 % Eosinophils % 1 % Basophils % 0 % Neutrophils # 8.5 H (1.3-7.7) k/uL Lymphocytes # 1.8 (1.0-4.8) k/uL Monocytes # 0.4 (0-1.0) k/uL Eosinophils # 0.1 (0-0.7) k/uL Basophils # 0.0 (0-0.2) k/uL PT (9.0-12.0) sec INR (<1.2) APTT (22.0-30.0) sec Sodium (137-145) mmol/L Potassium (3.5-5.1) mmol/L Chloride (98-107) mmol/L Carbon Dioxide (22-30) mmol/L Anion Gap mmol/L BUN (7-17) mg/dL Creatinine (0.52-1.04) mg/dL Est GFR (CKD-EPI)AfAm (>60 ml/min/1.73 sqM) Est GFR (CKD-EPI)NonAf (>60 ml/min/1.73 sqM) Glucose (74-99) mg/dL Calcium (8.4-10.2) mg/dL Total Bilirubin (0.2-1.3) mg/dL AST (14-36) U/L ALT (4-34) U/L Alkaline Phosphatase (38-126) U/L Total Protein (6.3-8.2) g/dL Albumin (3.5-5.0) g/dL Urine Color Colorless Urine Appearance Clear (Clear) Urine pH 6.0 (5.0-8.0) Ur Specific [place] 1.002 (1.001-1.035) Urine Protein Negative (Negative) Urine Glucose (UA) Negative (Negative) Urine Ketones Negative (Negative) Urine Blood Negative (Negative) Urine Nitrite Negative (Negative) Urine Bilirubin Negative (Negative) Urine Urobilinogen <2.0 (<2.0) mg/dL Ur Leukocyte Esterase Negative (Negative) Urine HCG, Qual Not Detected (Not Detectd) 08/12/20 08/12/20 Range/Units 11:09 11:09 WBC (3.8-10.6) k/uL RBC (3.80-5.40) m/uL Hgb (11.4-16.0) gm/dL Hct (34.0-46.0) % MCV (80.0-100.0) fL MCH (25.0-35.0) pg MCHC (31.0-37.0) g/dL RDW (11.5-15.5) % Plt Count (150-450) k/uL MPV Neutrophils % % Lymphocytes % % Monocytes % % Eosinophils % % Basophils % % Neutrophils # (1.3-7.7) k/uL Lymphocytes # (1.0-4.8) k/uL Monocytes # (0-1.0) k/uL Eosinophils # (0-0.7) k/uL Basophils # (0-0.2) k/uL PT 10.2 (9.0-12.0) sec INR 0.9 (<1.2) APTT 22.7 (22.0-30.0) sec Sodium 138 (137-145) mmol/L Potassium 3.9 (3.5-5.1) mmol/L Chloride 104 (98-107) mmol/L Carbon Dioxide 25 (22-30) mmol/L Anion Gap 9 mmol/L BUN 10 (7-17) mg/dL Creatinine 0.62 (0.52-1.04) mg/dL Est GFR (CKD-EPI)AfAm >90 (>60 ml/min/1.73 sqM) Est GFR (CKD-EPI)NonAf >90 (>60 ml/min/1.73 sqM) Glucose 135 H (74-99) mg/dL Calcium 9.3 (8.4-10.2) mg/dL Total Bilirubin 0.4 (0.2-1.3) mg/dL AST 19 (14-36) U/L ALT 15 (4-34) U/L Alkaline Phosphatase 54 (38-126) U/L Total Protein 7.3 (6.3-8.2) g/dL Albumin 4.3 (3.5-5.0) g/dL Urine Color Urine Appearance (Clear) Urine pH (5.0-8.0) Ur Specific [place] (1.001-1.035) Urine Protein (Negative) Urine Glucose (UA) (Negative) Urine Ketones (Negative) Urine Blood (Negative) Urine Nitrite (Negative) Urine Bilirubin (Negative) Urine Urobilinogen (<2.0) mg/dL Ur Leukocyte Esterase (Negative) Urine HCG, Qual (Not Detectd) - Radiology Data Radiology results: report reviewed, image reviewed Ultrasound of the pelvis is obtained. Report is reviewed in its entirety. Impression by Dr. Gallardo shows no significant abnormalities seen. Disposition Clinical Impression: Dysfunctional uterine bleeding, Pelvic pain Disposition: HOME SELF-CARE Condition: Good Instructions (If sedation given, give patient instructions): Dysfunctional Uterine Bleeding (ED), Pelvic Pain (ED) Additional Instructions: Follow-up with TOUR COORDINATOR for recheck as soon as possible. Return to the emergency department for any new, worsening, or concerning symptoms. Is patient prescribed a controlled substance at d/c from ED?: No Referrals: Everett Vinson DO [Primary Care Provider] - 1-2 days Mani Thomas DO [Doctor of Osteopathic Medicine] - 1-2 days Time of Disposition: 13:01
== END 2020-08-12 13:16 | disposition home or self-care (01) ==
LOC: EC 10:01
DX: N93.8 Other specified abnormal uterine and vaginal bleeding (principal); R10.2 Pelvic and perineal pain; F32.9 Major depressive disorder, single episode, unspecified; F41.9 Anxiety disorder, unspecified; M06.9 Rheumatoid arthritis, unspecified; F17.200 Nicotine dependence, unspecified, uncomplicated; M79.7 Fibromyalgia; Z79.899 Other long term (current) drug therapy; Z88.0 Allergy status to penicillin
CPT/HCPCS: 36415; 76830; 80053; 81003; 81025; 85025; 85610; 85730; 93975; 99284

== ENCOUNTER 2021-06-09 05:58 | Inpatient (IN) | payer BC ==
[2021-06-09] MEDS ORDERED: LORazepam 2 MG/ML INJ IV STA ×2 (06:26→08:01)
[2021-06-09] MEDS ORDERED: SODIUM CHLORIDE 0.9% 1,000 ML IV STA (06:26)
--- NOTE | 2021-06-09 06:43 | ED ---
General Adult HPI - General Chief complaint: Neuro Symptoms/Deficit Stated complaint: Dizziness Time Seen by Provider: 06/09/21 06:13 Source: patient, RN notes reviewed Mode of arrival: ambulatory - History of Present Illness Initial comments: 40-year-old female with a past medical history of fibromyalgia, rheumatoid arthritis presents to the emergency room for a chief complaint of upper back pain. Patient states she has had back pain for weeks. I spoke with patient's who states she has been out of her medications for at least 4 days. States that she takes clonazepam re-times per day. States that shows a takes Lyrica and baclofen. Patient started drinking again in the past couple days as well because of this. He states that her heart rate was fast and her breathing was worrying him. States that she is not acting herself. States this has happened in the past when she was out of her medications and started drinking. Patient has no other complaints at this time including shortness of breath, chest pain, abdominal pain, nausea or vomiting, headache, or visual changes. - Related Data Home Medications Medication Instructions Recorded Confirmed DULoxetine HCL [Cymbalta] 60 mg PO DAILY 09/22/18 06/09/21 Baclofen 10 mg PO TID PRN 06/09/21 06/09/21 Pregabalin [Lyrica] 100 mg PO BID 06/09/21 06/09/21 clonazePAM 0.5 mg PO TID PRN 06/09/21 06/09/21 lamoTRIgine [LaMICtal] 200 mg PO DAILY 06/09/21 06/09/21 Allergies Allergy/AdvReac Type Severity Reaction Status Date / Time Penicillins Allergy Rash/Hives Verified 06/09/21 06:03 Review of Systems ROS Statement: Those systems with pertinent positive or pertinent negative responses have been documented in the HPI. ROS Other: All systems not noted in ROS Statement are negative. Past Medical History Past Medical History: Fibromyalgia, Rheumatoid Arthritis (RA) History of Any Multi-Drug Resistant Organisms: None Reported Past Surgical History: Section Additional Past Anesthesia/Blood Transfusion Reaction / Comment(s): Pt states she has never had surgery/anesthesia or blood Past Psychological History: Anxiety, Depression Smoking Status: Current every day smoker Past Alcohol Use History: Rare Past Drug Use History: Marijuana - Past Family History Father Family Medical History: No Reported History Additional Family Medical History / Comment(s): Pt states father is healthy. Mother Family Medical History: No Reported History Additional Family Medical History / Comment(s): Mother is healthy General Exam General appearance: alert, in no apparent distress Head exam: Present: atraumatic Eye exam: Present: normal appearance, PERRL, EOMI. Absent: scleral icterus, conjunctival injection ENT exam: Present: normal exam, mucous membranes moist Neck exam: Present: normal inspection, full ROM. Absent: tenderness Respiratory exam: Present: normal lung sounds bilaterally. Absent: respiratory distress, wheezes Cardiovascular Exam: Present: tachycardia, normal heart sounds GI/Abdominal exam: Present: soft, normal bowel sounds. Absent: distended, tenderness Extremities exam: Present: other (Tremulous) Neurological exam: Present: alert Course Vital Signs 06/09/21 06/09/21 06:03 06:39 Temperature 98.8 F Pulse Rate 112 H 104 H Respiratory 20 18 Rate Blood Pressure 157/101 146/102 O2 Sat by Pulse 98 96 Oximetry EKG Findings - EKG Comments: EKG Findings:: Sinus tachycardia, ventricular rate 105, OR interval 144, QTC 478 Medical Decision Making - Medical Decision Making Vitals are stable. Patient is well-appearing. She is alert and oriented although slow to respond. Patient does appear intoxicated and is tremulous. CBC unremarkable. CMP does show slight transaminitis likely secondary to alcoholism. Anion gap of 19 likely secondary to alcohol ketosis. Alcohol is 251. At this time patient will be admitted for acute alcohol intoxication. - Lab Data Result diagrams: 06/09/21 07:02 06/09/21 07:02 Lab Results 06/09/21 06/09/21 06/09/21 Range/Units 07:02 07:02 07:02 WBC 9.3 (3.8-10.6) k/uL RBC 5.09 (3.80-5.40) m/uL Hgb 15.1 (11.4-16.0) gm/dL Hct 44.5 (34.0-46.0) % MCV 87.4 (80.0-100.0) fL MCH 29.6 (25.0-35.0) pg MCHC 33.9 (31.0-37.0) g/dL RDW 14.2 (11.5-15.5) % Plt Count 485 H (150-450) k/uL MPV 7.2 Neutrophils % 63 % Lymphocytes % 28 % Monocytes % 7 % Eosinophils % 1 % Basophils % 0 % Neutrophils # 5.9 (1.3-7.7) k/uL Lymphocytes # 2.6 (1.0-4.8) k/uL Monocytes # 0.7 (0-1.0) k/uL Eosinophils # 0.0 (0-0.7) k/uL Basophils # 0.0 (0-0.2) k/uL Sodium 134 L (137-145) mmol/L Potassium 4.7 (3.5-5.1) mmol/L Chloride 95 L (98-107) mmol/L Carbon Dioxide 20 L (22-30) mmol/L Anion Gap 19 mmol/L BUN <2 L (7-17) mg/dL Creatinine 0.60 (0.52-1.04) mg/dL Est GFR (CKD-EPI)AfAm >90 (>60 ml/min/1.73 sqM) Est GFR (CKD-EPI)NonAf >90 (>60 ml/min/1.73 sqM) Glucose 236 H (74-99) mg/dL Calcium 9.8 (8.4-10.2) mg/dL Magnesium 1.9 (1.6-2.3) mg/dL Total Bilirubin 1.0 (0.2-1.3) mg/dL AST 74 H (14-36) U/L ALT 39 H (4-34) U/L Alkaline Phosphatase 61 (38-126) U/L Troponin I 0.021 (0.000-0.034) ng/mL Total Protein 8.7 H (6.3-8.2) g/dL Albumin 5.2 H (3.5-5.0) g/dL Urine Color Urine Appearance (Clear) Urine pH (5.0-8.0) Ur Specific [place] (1.001-1.035) Urine Protein (Negative) Urine Glucose (UA) (Negative) Urine Ketones (Negative) Urine Blood (Negative) Urine Nitrite (Negative) Urine Bilirubin (Negative) Urine Urobilinogen (<2.0) mg/dL Ur Leukocyte Esterase (Negative) Urine RBC (0-5) /hpf Urine WBC (0-5) /hpf Ur Squamous Epith Cells (0-4) /hpf Urine Bacteria (None) /hpf Urine HCG, Qual (Not Detectd) Urine Opiates Screen (NotDetected) Ur Oxycodone Screen (NotDetected) Urine Methadone Screen (NotDetected) Ur Propoxyphene Screen (NotDetected) Ur Barbiturates Screen (NotDetected) U Tricyclic Antidepress (NotDetected) Ur Phencyclidine Scrn (NotDetected) Ur Amphetamines Screen (NotDetected) U Methamphetamines Scrn (NotDetected) U Benzodiazepines Scrn (NotDetected) Urine Cocaine Screen (NotDetected) U Marijuana (THC) Screen (NotDetected) Serum Alcohol 251 H* mg/dL 06/09/21 06/09/21 Range/Units 07:02 07:02 WBC (3.8-10.6) k/uL RBC (3.80-5.40) m/uL Hgb (11.4-16.0) gm/dL Hct (34.0-46.0) % MCV (80.0-100.0) fL MCH (25.0-35.0) pg MCHC (31.0-37.0) g/dL RDW (11.5-15.5) % Plt Count (150-450) k/uL MPV Neutrophils % % Lymphocytes % % Monocytes % % Eosinophils % % Basophils % % Neutrophils # (1.3-7.7) k/uL Lymphocytes # (1.0-4.8) k/uL Monocytes # (0-1.0) k/uL Eosinophils # (0-0.7) k/uL Basophils # (0-0.2) k/uL Sodium (137-145) mmol/L Potassium (3.5-5.1) mmol/L Chloride (98-107) mmol/L Carbon Dioxide (22-30) mmol/L Anion Gap mmol/L BUN (7-17) mg/dL Creatinine (0.52-1.04) mg/dL Est GFR (CKD-EPI)AfAm (>60 ml/min/1.73 sqM) Est GFR (CKD-EPI)NonAf (>60 ml/min/1.73 sqM) Glucose (74-99) mg/dL Calcium (8.4-10.2) mg/dL Magnesium (1.6-2.3) mg/dL Total Bilirubin (0.2-1.3) mg/dL AST (14-36) U/L ALT (4-34) U/L Alkaline Phosphatase (38-126) U/L Troponin I (0.000-0.034) ng/mL Total Protein (6.3-8.2) g/dL Albumin (3.5-5.0) g/dL Urine Color Colorless Urine Appearance Clear (Clear) Urine pH 6.0 (5.0-8.0) Ur Specific [place] 1.001 (1.001-1.035) Urine Protein Negative (Negative) Urine Glucose (UA) 3+ H (Negative) Urine Ketones Negative (Negative) Urine Blood Small H (Negative) Urine Nitrite Negative (Negative) Urine Bilirubin Negative (Negative) Urine Urobilinogen <2.0 (<2.0) mg/dL Ur Leukocyte Esterase Trace H (Negative) Urine RBC <1 (0-5) /hpf Urine WBC 2 (0-5) /hpf Ur Squamous Epith Cells <1 (0-4) /hpf Urine Bacteria Rare H (None) /hpf Urine HCG, Qual Not Detected (Not Detectd) Urine Opiates Screen Not Detected (NotDetected) Ur Oxycodone Screen Not Detected (NotDetected) Urine Methadone Screen Not Detected (NotDetected) Ur Propoxyphene Screen Not Detected (NotDetected) Ur Barbiturates Screen Not Detected (NotDetected) U Tricyclic Antidepress Not Detected (NotDetected) Ur Phencyclidine Scrn Not Detected (NotDetected) Ur Amphetamines Screen Not Detected (NotDetected) U Methamphetamines Scrn Not Detected (NotDetected) U Benzodiazepines Scrn Not Detected (NotDetected) Urine Cocaine Screen Not Detected (NotDetected) U Marijuana (THC) Screen Detected H (NotDetected) Serum Alcohol mg/dL Disposition Clinical Impression: Acute alcohol intoxication Disposition: ADMITTED IP TO THIS HOSP Condition: Good Instructions (If sedation given, give patient instructions): Alcohol Intoxic ation (ED) Is patient prescribed a controlled substance at d/c from ED?: No Referrals: Everett Vinson DO [Primary Care Provider] - 1-2 days Time of Disposition: 08:57
[2021-06-09 07:37] LABS: Appearance,Urine Clear (Clear); Bacteria,Urine Rare /hpf; Bilirubin,Urine Negative (Negative); Blood,Urine Small (Negative); Color,Urine Colorless; Glucose,Urine (UA) 3+ (Negative); Ketones,Urine Negative (Negative); Leukocyte Esterase,Urine Trace (Negative); Nitrite,Urine Negative (Negative); Protein,Urine Negative (Negative); RBC,Urine <1 /hpf (0-5); Specific Gravity,Urine 1.001 (1.001-1.035); Squamous Epithelial Cell,Urine <1 /hpf (0-4); Urobilinogen,Urine <2.0 mg/dL (<2.0); WBC,Urine 2 /hpf (0-5)
--- NOTE | 2021-06-09 07:39 | XR ---
EXAMINATION TYPE: XR chest 2V DATE OF EXAM: 06/09/2021 COMPARISON: Chest x-ray May 05, 2018 HISTORY: Altered mental status and weakness TECHNIQUE: Frontal and lateral views of the chest are obtained. FINDINGS: There is no suspicious focal air space opacity, pleural effusion, or pneumothorax seen. T he cardiac silhouette size remains within normal limits. The osseous structures are intact. IMPRESSION: No acute cardiopulmonary process. No significant change from prior.
[2021-06-09 07:40] LABS: Amphetamine Screen,Urine Not Detected (NotDetected); Barbiturate Screen,Urine Not Detected (NotDetected); Benzodiazepines Screen,Urine Not Detected (NotDetected); Cocaine Screen,Urine Not Detected (NotDetected); Methadone Screen, Urine Not Detected (NotDetected); Opiate Screen,Urine Not Detected (NotDetected); Oxycodone Screen, Urine Not Detected (NotDetected); Phencyclidine Screen,Urine Not Detected (NotDetected); Tricyclic Antidepressant,Urine Not Detected (NotDetected); Urn Cannabinoid Scrn Detected (NotDetected)
[2021-06-09 07:41] LABS: ALT 39 U/L (4-34); AST 74 U/L (14-36); African American GFR (CKD) >90 (>60 ml/min/1.73 sqM); Albumin 5.2 g/dL (3.5-5.0); Alkaline Phosphatase 61 U/L (38-126); Anion Gap 19 mmol/L; Basophils % (A) 0 %; Blood Urea Nitrogen <2 mg/dL (7-17); Calcium 9.8 mg/dL (8.4-10.2); Carbon Dioxide 20 mmol/L (22-30); Chloride 95 mmol/L (98-107); Eosinophils % (A) 1 %; Glucose 236 mg/dL (74-99); HCT 44.5 % (34.0-46.0); HGB 15.1 gm/dL (11.4-16.0); Lymphocytes # (A) 2.6 k/uL (1.0-4.8); Lymphocytes % (A) 28 %; MCH 29.6 pg (25.0-35.0); MCHC 33.9 g/dL (31.0-37.0); MCV 87.4 fL (80.0-100.0); Magnesium 1.9 mg/dL (1.6-2.3); Mean Platelet Volume 7.2; Monocytes # (A) 0.7 k/uL (0-1.0); Monocytes % (A) 7 %; Neutrophils # (A) 5.9 k/uL (1.3-7.7); Neutrophils % (A) 63 %; Non-African American GFR(CKD) >90 (>60 ml/min/1.73 sqM); Platelet Count 485 k/uL (150-450); Potassium 4.7 mmol/L (3.5-5.1); RBC 5.09 m/uL (3.80-5.40); RDW 14.2 % (11.5-15.5); Sodium 134 mmol/L (137-145); Total Protein 8.7 g/dL (6.3-8.2); WBC 9.3 k/uL (3.8-10.6)
[2021-06-09 07:43] LABS: Alcohol 251 mg/dL
[2021-06-09] MEDS ORDERED: SODIUM CHLORIDE 0.9% 1,000 ML with THIAMINE 100 MG, FOLIC ACID 1 MG IV STA ×3 (07:58)
[2021-06-09] MEDS ORDERED: MULTIVITAMINS, THERA 1 EACH TAB PO STA (08:06)
[2021-06-09] MEDS ORDERED: NALOXONE 0.4 MG/ML 1 ML VIAL IV PRN ×2 (08:57→13:36)
[2021-06-09] MEDS ORDERED: THIAMINE 100 MG/ML 2 ML VIAL IM STA (08:59)
[2021-06-09] MEDS: THIAMINE 100 MG TAB PO SCH (09:48)
[2021-06-09] MEDS ORDERED: LACTULOSE 20 GM/30 ML CUP PO STA (10:15)
[2021-06-09] MEDS: LORazepam 2 MG/ML INJ IV PRN ×5 (11:20→17:36)
--- NOTE | 2021-06-09 13:39 | P.HPIM ---
History of Present Illness H&P Date: 06/09/21 Chief Complaint: confusion 40-year-old female with a past medical history of fibromyalgia, rheumatoid arthritis presents to the emergency room for a chief complaint of upper back pain. She ran out of her medications for at least 4 days. Was on clonazepam, Lyrica and baclofen. Patient started drinking again in the past couple days due to that. noticed that patient has been confused, not acting herself. also concerned about rapid HR and breathing. States this has happened in the past when she was out of her medications and started drinking. Patient has n o other complaints at this time including shortness of breath, chest pain, abdominal pain, nausea or vomiting, headache, or visual changes. Laboratory evaluation in the emergency department revealed sodium 134, AST 74, AST 39, glucose 236, normal CBC. EKG showed sinus tachycardia. Her heart rate was going up to 120s in the emergency department. Rest of the vitals are within normal limits. Chest x-ray unremarkable. Review of Systems Complete review of system performed, pertinent positives per HPI, otherwise negative Past Medical History Past Medical History: Fibromyalgia, Rheumatoid Arthritis (RA) History of Any Multi-Drug Resistant Organisms: None Reported Past Surgical History: Section Additional Past Anesthesia/Blood Transfusion Reaction / Comment(s): Pt states she has never had surgery/anesthesia or blood Past Psychological History: Anxiety, Depression Smoking Status: Current every day smoker Past Alcohol Use History: Rare Past Drug Use History: Marijuana - Past Family History Father Family Medical History: No Reported History Additional Family Medical History / Comment(s): Pt states father is healthy. Mother Family Medical History: No Reported History Additional Family Medical History / Comment(s): Mother is healthy Medications and Allergies Home Medications Medication Instructions Recorded Confirmed Type DULoxetine HCL [Cymbalta] 60 mg PO DAILY 09/22/18 06/09/21 History Baclofen 10 mg PO TID PRN 06/09/21 06/09/21 History Pregabalin [Lyrica] 100 mg PO BID 06/09/21 06/09/21 History clonazePAM 0.5 mg PO TID PRN 06/09/21 06/09/21 History lamoTRIgine [LaMICtal] 200 mg PO DAILY 06/09/21 06/09/21 History Allergies Allergy/AdvReac Type Severity Reaction Status Date / Time Penicillins Allergy Rash/Hives Verified 06/09/21 06:03 Physical Exam Vitals: Vital Signs Temp Pulse Resp BP Pulse Ox 06/09/21 13:19 128 H 22 154/113 96 06/09/21 10:07 98.1 F 125 H 20 148/93 97 06/09/21 06:39 104 H 18 146/102 96 06/09/21 06:03 98.8 F 112 H 20 157/101 98 Intake and Output 06/08/21 06/09/21 06/09/21 22:59 06:59 14:59 Other: Weight 72.575 kg Constitutional: No acute distress, conversant, pleasant Eyes:Anicteric sclerae, moist conjunctiva, no lid-lag, PERRLA, ENMT: Oropharynx clear, no erythema, exudates Neck: Supple, FROM, no masses, or JVD, No carotid bruits, No thyromegaly Lungs: Clear to auscultation, Clear to percussion, Normal respiratory effort, no accessory muscle use Cardiovascular: Tachycardic, regular No murmurs, gallops, or rubs, No peripheral edema Abdominal: Soft, Nontender, no guarding, rebound or rigidity, Normoactive bowel sounds, No hepatomegaly, No splenomegaly, No palpable mass Skin: Normal temperature, tone, texture, turgor, no induration, No subcutaneous nodules, No rash, lesions, No ulcers Extremities: No digital cyanosis, No clubbing, Pedal pulses intact and symmetrical, Radial pulses intact and symmetrical, No calf tenderness Psychiatric: Alert and oriented to person, place and time, appropriate affect, intact judgement Neuro: Muscles Strength 5/5 in all 4 extremities, Sensation to light touch grossly present throughout, Cranial nerves II-XII grossly intact, no focal sensory deficits Results CBC & Chem 7: 06/09/21 07:02 06/09/21 07:02 Labs: Abnormal Lab Results - Last 24 Hours (Table) 06/09/21 06/09/21 06/09/21 Range/Units 07:02 07:02 07:02 Plt Count 485 H (150-450) k/uL Sodium 134 L (137-145) mmol/L Chloride 95 L (98-107) mmol/L Carbon Dioxide 20 L (22-30) mmol/L BUN <2 L (7-17) mg/dL Glucose 236 H (74-99) mg/dL AST 74 H (14-36) U/L ALT 39 H (4-34) U/L Ammonia (<30) umol/L Total Protein 8.7 H (6.3-8.2) g/dL Albumin 5.2 H (3.5-5.0) g/dL Urine Glucose (UA) 3+ H (Negative) Urine Blood Small H (Negative) Ur Leukocyte Esterase Trace H (Negative) Urine Bacteria Rare H (None) /hpf U Marijuana (THC) Screen Detected H (NotDetected) Serum Alcohol 251 H* mg/dL 06/09/21 Range/Units 07:56 Plt Count (150-450) k/uL Sodium (137-145) mmol/L Chloride (98-107) mmol/L Carbon Dioxide (22-30) mmol/L BUN (7-17) mg/dL Glucose (74-99) mg/dL AST (14-36) U/L ALT (4-34) U/L Ammonia 32 H (<30) umol/L Total Protein (6.3-8.2) g/dL Albumin (3.5-5.0) g/dL Urine Glucose (UA) (Negative) Urine Blood (Negative) Ur Leukocyte Esterase (Negative) Urine Bacteria (None) /hpf U Marijuana (THC) Screen (NotDetected) Serum Alcohol mg/dL Assessment and Plan Plan: EtOH abuse Start on CIWA protocol Thiamine, folic acid and multivitamins Patient counseled to quit Sinus tachycardia Likely sec to dehydration IV fluids. Upper back pain Resume baclofen, Klonopin and Lyrica Hyperglycemia Check A1c Sliding scale insulin with blood sugar checks every before meals and at bedtime. Fibromyalgia Stable Resume meds Admit to observation
[2021-06-09] MEDS: lamoTRIgine 100 MG TAB PO SCH (14:08)
[2021-06-09] MEDS: DULoxetine HCL 60 MG CAPSULE.DR PO SCH (14:08)
[2021-06-09] MEDS: PREGABALIN 100 MG CAP PO SCH ×2 (14:08→21:04)
[2021-06-09] MEDS: clonazePAM 0.5 MG TAB PO PRN ×2 (14:08→21:04)
[2021-06-09] MEDS: BACLOFEN 10 MG TAB PO PRN ×2 (14:09→21:04)
[2021-06-09] MEDS: SODIUM CHLORIDE 0.9% 1,000 ML IV SCH ×2 (19:37→21:04)
[2021-06-09 20:34] LABS: Glucose,Whole Blood 157 mg/dL (75-99)
[2021-06-09] MEDS: INSULIN ASPART (NovoLOG) 100 UNIT/ML VIAL SQ SCH ×2 (21:04→21:07)
[2021-06-10] MEDS: LORazepam 2 MG/ML INJ IV PRN ×8 (02:22→22:30)
[2021-06-10] MEDS: SODIUM CHLORIDE 0.9% 1,000 ML IV SCH ×4 (02:23→20:51)
[2021-06-10] MEDS: BACLOFEN 10 MG TAB PO PRN ×2 (05:19→20:51)
[2021-06-10] MEDS: clonazePAM 0.5 MG TAB PO PRN ×2 (05:19→20:51)
[2021-06-10 07:33] LABS: Glucose,Whole Blood 144 mg/dL (75-99)
[2021-06-10] MEDS: PREGABALIN 100 MG CAP PO SCH ×2 (07:45→20:51)
[2021-06-10] MEDS: THIAMINE 100 MG TAB PO SCH ×2 (07:45→17:49)
[2021-06-10] MEDS: INSULIN ASPART (NovoLOG) 100 UNIT/ML VIAL SQ SCH ×4 (07:45→20:56)
[2021-06-10] MEDS: DULoxetine HCL 60 MG CAPSULE.DR PO SCH (07:45)
[2021-06-10] MEDS: lamoTRIgine 100 MG TAB PO SCH (07:45)
[2021-06-10 08:01] LABS: Prothrombin Time 10.3 sec (9.0-12.0)
[2021-06-10 08:20] LABS: Basophils % (A) 0 %; Eosinophils # (A) 0.1 k/uL (0-0.7); Eosinophils % (A) 1 %; HCT 44.6 % (34.0-46.0); HGB 14.3 gm/dL (11.4-16.0); Lymphocytes # (A) 1.6 k/uL (1.0-4.8); Lymphocytes % (A) 14 %; MCH 29.4 pg (25.0-35.0); MCHC 32.1 g/dL (31.0-37.0); MCV 91.7 fL (80.0-100.0); Monocytes # (A) 0.6 k/uL (0-1.0); Monocytes % (A) 5 %; Neutrophils # (A) 9.5 k/uL (1.3-7.7); Neutrophils % (A) 80 %; Platelet Count 352 k/uL (150-450); RBC 4.86 m/uL (3.80-5.40); RDW 14.1 % (11.5-15.5); WBC 11.8 k/uL (3.8-10.6)
--- NOTE | 2021-06-10 08:33 | P.PN ---
Subjective Progress Note Date: 06/10/21 Principal diagnosis: back pain, confusion Patient has been tachycardic and shaky, which is typical when she withdraws from alcohol. Her back pain is better now. No fever or chills. Objective - Vital Signs Vital signs: Vital Signs Temp 98.2 F 06/10/21 04:30 Pulse 110 H 06/10/21 05:48 Resp 18 06/10/21 04:30 BP 117/88 06/10/21 05:48 Pulse Ox 97 06/10/21 04:30 Intake & Output 06/09/21 06/10/21 06/10/21 18:59 06:59 18:59 Intake Total 1800 Balance 1800 Weight 72.575 kg Intake: Intake, IV Titration 1800 Amount Sodium Chloride 0.9% 1, 1800 000 ml @ 150 mls/hr IV . Q6H40M [facility] Rx#:[id number] Other: Voiding Method Toilet # Voids 1 - Exam Constitutional: No acute distress, conversant, pleasant Eyes:Anicteric sclerae, moist conjunctiva, no lid-lag, PERRLA, ENMT: Oropharynx clear, no erythema, exudates Neck: Supple, FROM, no masses, or JVD, No carotid bruits, No thyromegaly Lungs: Clear to auscultation, Clear to percussion, Normal respiratory effort, no accessory muscle use Cardiovascular: Tachycardic, regular No murmurs, gallops, or rubs, No peripheral edema Abdominal: Soft, Nontender, no guarding, rebound or rigidity, Normoactive bowel sounds, No hepatomegaly, No splenomegaly, No palpable mass Skin: Normal temperature, tone, texture, turgor, no induration, No subcutaneous nodules, No rash, lesions, No ulcers Extremities: No digital cyanosis, No clubbing, Pedal pulses intact and symmetrical, Radial pulses intact and symmetrical, No calf tenderness Psychiatric: Alert and oriented to person, place and time, appropriate affect, intact judgement Neuro: Muscles Strength 5/5 in all 4 extremities, Sensation to light touch grossly present throughout, Cranial nerves II-XII grossly intact, no focal sensory deficits - Labs CBC & Chem 7: 06/10/21 07:05 06/09/21 07:02 Labs: Abnormal Lab Results - Last 24 Hours (Table) 06/09/21 06/09/21 06/09/21 Range/Units 07:02 07:56 20:27 WBC (3.8-10.6) k/uL Neutrophils # (1.3-7.7) k/uL POC Glucose (mg/dL) 157 H (75-99) mg/dL Hemoglobin A1c 6.9 H (4.0-6.0) % Ammonia 32 H (<30) umol/L 06/10/21 06/10/21 Range/Units 07:05 07:31 WBC 11.8 H (3.8-10.6) k/uL Neutrophils # 9.5 H (1.3-7.7) k/uL POC Glucose (mg/dL) 144 H (75-99) mg/dL Hemoglobin A1c (4.0-6.0) % Ammonia (<30) umol/L Assessment and Plan Plan: EtOH abuse On CIWA protocol, will resume Thiamine, folic acid and multivitamins Patient counseled to quit Sinus tachycardia Likely sec to dehydration IV fluids. Upper back pain Resume baclofen, Klonopin and Lyrica Hyperglycemia/new onset diabetes A1c 6.9 Sliding scale insulin with blood sugar checks every before meals and at bedtime. Will need to be discharged on metformin when ready. Fibromyalgia Stable Resume meds Anticipated discharge 2 days Dispo: Home
[2021-06-10] MEDS: NICOTINE 21MG/24HR PATCH TRANSDERM SCH (08:40)
[2021-06-10 11:31] LABS: African American GFR (CKD) 103.3 (60.0-200.0); Albumin 4.3 g/dL (3.8-4.9); Albumin/Globulin Ratio 1.88 (1.60-3.17); Anion Gap 14.5 mmol/L (10.00-18.00); BUN/Creat Ratio 7.86 Ratio (12.00-20.00); Blood Urea Nitrogen 6.5 mg/dL (9.0-27.0); Calcium 9.2 mg/dL (8.7-10.3); Carbon Dioxide 23.2 mmol/L (20.0-27.5); Globulin 2.3 g/dL (1.6-3.3); Non-African American GFR(CKD) 89.1 (60.0-200.0); Potassium 4.2 mmol/L (3.5-5.5); Total Protein 6.6 g/dL (6.2-8.2)
[2021-06-10 12:43] LABS: Glucose,Whole Blood 147 mg/dL (75-99)
[2021-06-10 17:55] LABS: Glucose,Whole Blood 128 mg/dL (75-99)
[2021-06-10 20:36] LABS: Glucose,Whole Blood 136 mg/dL (75-99)
[2021-06-11] MEDS: LORazepam 2 MG/ML INJ IV PRN ×2 (02:39→08:07)
[2021-06-11] MEDS: SODIUM CHLORIDE 0.9% 1,000 ML IV SCH ×4 (02:40→21:38)
[2021-06-11] MEDS: clonazePAM 0.5 MG TAB PO PRN ×2 (05:11→20:53)
[2021-06-11] MEDS: BACLOFEN 10 MG TAB PO PRN ×2 (05:11→20:53)
[2021-06-11 07:02] LABS: Glucose,Whole Blood 118 mg/dL (75-99)
[2021-06-11] MEDS: INSULIN ASPART (NovoLOG) 100 UNIT/ML VIAL SQ SCH ×4 (07:28→21:37)
[2021-06-11] MEDS: DULoxetine HCL 60 MG CAPSULE.DR PO SCH (07:48)
[2021-06-11] MEDS: THIAMINE 100 MG TAB PO SCH ×2 (07:48→17:02)
[2021-06-11] MEDS: PREGABALIN 100 MG CAP PO SCH ×2 (07:48→20:53)
[2021-06-11] MEDS: lamoTRIgine 100 MG TAB PO SCH (07:48)
[2021-06-11] MEDS: NICOTINE 21MG/24HR PATCH TRANSDERM SCH (07:49)
--- NOTE | 2021-06-11 10:29 | P.PN ---
Subjective Progress Note Date: 06/11/21 Principal diagnosis: back pain, confusion Doing well however she is still showing signs of alcohol withdrawal and getting as needed ativan. No fevers or chills. No pain. Objective - Vital Signs Vital signs: Vital Signs Temp 98.0 F 06/11/21 04:23 Pulse 85 06/11/21 04:23 Resp 16 06/11/21 04:23 BP 149/97 06/11/21 04:23 Pulse Ox 99 06/11/21 04:23 Intake & Output 06/10/21 06/11/21 06/11/21 18:59 06:59 18:59 Intake Total 1800 1800 Balance 1800 1800 Intake: Intake, IV Titration 1800 1800 Amount Sodium Chloride 0.9% 1, 1800 1800 000 ml @ 150 mls/hr IV . Q6H40M [facility] Rx#:[id number] Other: Voiding Method Toilet Toilet - Exam Constitutional: No acute distress, conversant, pleasant Eyes:Anicteric sclerae, moist conjunctiva, no lid-lag, PERRLA, ENMT: Oropharynx clear, no erythema, exudates Neck: Supple, FROM, no masses, or JVD, No carotid bruits, No thyromegaly Lungs: Clear to auscultation, Clear to percussion, Normal respiratory effort, no accessory muscle use Cardiovascular: Tachycardic, regular No murmurs, gallops, or rubs, No peripheral edema Abdominal: Soft, Nontender, no guarding, rebound or rigidity, Normoactive bowel sounds, No hepatomegaly, No splenomegaly, No palpable mass Skin: Normal temperature, tone, texture, turgor, no induration, No subcutaneous nodules, No rash, lesions, No ulcers Extremities: No digital cyanosis, No clubbing, Pedal pulses intact and symmetrical, Radial pulses intact and symmetrical, No calf tenderness Psychiatric: Alert and oriented to person, place and time, appropriate affect, intact judgement Neuro: Muscles Strength 5/5 in all 4 extremities, Sensation to light touch grossly present throughout, Cranial nerves II-XII grossly intact, no focal sensory deficits - Labs CBC & Chem 7: 06/10/21 07:05 06/10/21 07:05 Labs: Abnormal Lab Results - Last 24 Hours (Table) 06/10/21 06/10/21 06/10/21 Range/Units 07:05 12:41 17:47 BUN 6.5 L (9.0-27.0) mg/dL BUN/Creatinine Ratio 7.86 L (12.00-20.00) Ratio Glucose 157 H (70-110) mg/dL POC Glucose (mg/dL) 147 H 128 H (75-99) mg/dL AST 52 H (13-35) U/L ALT 49 H (8-44) U/L 06/10/21 06/11/21 Range/Units 20:34 07:01 BUN (9.0-27.0) mg/dL BUN/Creatinine Ratio (12.00-20.00) Ratio Glucose (70-110) mg/dL POC Glucose (mg/dL) 136 H 118 H (75-99) mg/dL AST (13-35) U/L ALT (8-44) U/L Assessment and Plan Plan: EtOH abuse, currently in withdrawal On CIWA protocol, will resume Thiamine, folic acid and multivitamins Patient counseled to quit Sinus tachycardia Improved Likely sec to dehydration and etoh withdrawal IV fluids. Upper back pain Resume baclofen, Klonopin and Lyrica Hyperglycemia/new onset diabetes A1c 6.9 Sliding scale insulin with blood sugar checks every before meals and at bedtime. Will need to be discharged on metformin when ready. Fibromyalgia Stable Resume meds Anticipated discharge tomorrow Dispo: Home
[2021-06-11] MEDS: FOLIC ACID 1 MG TAB PO SCH (12:29)
[2021-06-11] MEDS: MULTIVITAMINS, THERA 1 EACH TAB PO SCH (12:31)
[2021-06-11 12:35] LABS: Glucose,Whole Blood 111 mg/dL (75-99)
[2021-06-11 17:18] LABS: Glucose,Whole Blood 167 mg/dL (75-99)
[2021-06-11 20:50] VITALS: RESP 16
[2021-06-11 21:32] LABS: Glucose,Whole Blood 154 mg/dL (75-99)
[2021-06-12] MEDS: clonazePAM 0.5 MG TAB PO PRN (04:30)
[2021-06-12] MEDS: BACLOFEN 10 MG TAB PO PRN (04:30)
[2021-06-12 04:33] VITALS: BP 131/92; PULSE 65; TEMP 97.9
[2021-06-12 07:16] LABS: Glucose,Whole Blood 115 mg/dL (75-99)
[2021-06-12] MEDS: INSULIN ASPART (NovoLOG) 100 UNIT/ML VIAL SQ SCH ×2 (07:23→11:53)
[2021-06-12] MEDS: THIAMINE 100 MG TAB PO SCH (07:52)
[2021-06-12] MEDS: PREGABALIN 100 MG CAP PO SCH (07:52)
[2021-06-12] MEDS: FOLIC ACID 1 MG TAB PO SCH (07:52)
[2021-06-12] MEDS: DULoxetine HCL 60 MG CAPSULE.DR PO SCH (07:52)
[2021-06-12] MEDS: lamoTRIgine 100 MG TAB PO SCH (07:52)
[2021-06-12] MEDS: NICOTINE 21MG/24HR PATCH TRANSDERM SCH (07:52)
[2021-06-12] MEDS: SODIUM CHLORIDE 0.9% 1,000 ML IV SCH (08:05)
[2021-06-12] MEDS: MULTIVITAMINS, THERA 1 EACH TAB PO SCH (08:05)
--- NOTE | 2021-06-12 11:26 | P.DS ---
<Jovany Dominguez - Last Filed: 06/12/21 18:29> Providers Expected date of discharge: 06/12/21 Hospital Course: Discharge Diagnosis: EtOH intoxication EtOH abuse with polysubstance abuse/use Sinus tachycardia secondary to EtOH intoxication and dehydration, resolved with luid hydration Acute exacerbation of chronic back pain Fibromyalgia Rheumatoid arthritis Hospital Course: Patient is a very pleasant 40-year-old female with a past medical history of fibromyalgia, rheumatoid arthritis, and EtOH use/abuse. She presented to the emergency department with reports of confusion and a chief complaint of exacerbation of chronic back pain on 06/09/21. In the emergency department patient underwent full evaluation she was found to be tachycardic with heart rate in 120s, intoxicated with blood alcohol level of 251. Urine drug screen positive for marijuana. EKG showing sinus tachycardia at 105 bpm with no noted T-wave or ST abnormalities showing no signs of acute ischemia. Chest x-ray negative for acute cardiopulmonary process. Patient was admitted under our services for EtOH intoxication pending withdrawal and placed on CIWA protocol. Patient received symptom triggered medication management for with benzodiazepines as she withdrew from alcohol. We resumed her baclofen, Klonopin and Lyrica for treatment of her back pain, fibromyalgia, and rheumatoid a rthritis. Sinus tachycardia result with IV fluid hydration. Patient was medically stable for discharge and discharge at this time. She was offered assistance with placement in drug and alcohol rehabilitation center but declined at this time. Patient was given outpatient resources for assistance with drug and alcohol abuse and encouraged on continued cessation of use. Physical examination: Patient seen and examined at bedside. Vital signs reviewed and stable. General: Nontoxic, no distress and appears stated age. Derm: Skin warm and dry, normal coloration for ethnicity. Head: Atraumatic, normocephalic and symmetric. Eyes: EOMs intact, no lid lag, and anicteric sclera Mouth: no lip lesions, mucus membranes moist Cardiovascular: regular rate and rhythm with normal S1S2, no murmur, positive posterior tibial pulses bilaterally, and cap refill < 2 seconds. Lungs: Respirations even, regular, and unlabored on room air. Lungs CTA bilatera lly, no rhonchi, no rales, no wheezing, and no accessory muscle usage. Abdominal: soft, nontender to palpation, no guarding, no appreciable organomegaly Ext: ROM intact. No gross muscle atrophy, no edema, no contractures Neuro: Speech clear, face symmetrical and CN II-XII grossly intact with no noted focal neuro deficits Psych: Alert and oriented to person, place, time, and situation. Appropriate and pleasant affect. A total of 45 minutes of time were spent preparing this complex discharge summary. Patient Condition at Discharge: Good Plan - Discharge Summary Discharge Rx Participant: Yes New Discharge Prescriptions: New Folic Acid 1 mg PO DAILY 30 Days #30 tab Multivitamins, Thera [Multivitamin (formulary)] 1 each PO DAILY 30 Days #30 tab Thiamine [Vitamin B-1] 100 mg PO BID-W/MEALS 30 Days #30 tab Continue DULoxetine HCL [Cymbalta] 60 mg PO DAILY lamoTRIgine [LaMICtal] 200 mg PO DAILY Pregabalin [Lyrica] 100 mg PO BID clonazePAM 0.5 mg PO TID PRN PRN Reason: Anxiety Baclofen 10 mg PO TID PRN PRN Reason: Pain Discharge Medication List DULoxetine HCL [Cymbalta] 60 mg PO DAILY 09/22/18 [History] Baclofen 10 mg PO TID PRN 06/09/21 [History] Pregabalin [Lyrica] 100 mg PO BID 06/09/21 [History] clonazePAM 0.5 mg PO TID PRN 06/09/21 [History] lamoTRIgine [LaMICtal] 200 mg PO DAILY 06/09/21 [History] Folic Acid 1 mg PO DAILY 30 Days #30 tab 06/12/21 [Rx] Multivitamins, Thera [Multivitamin (formulary)] 1 each PO DAILY 30 Days #30 tab 06/12/21 [Rx] Thiamine [Vitamin B-1] 100 mg PO BID-W/MEALS 30 Days #30 tab 06/12/21 [Rx] Follow up Appointment(s)/Referral(s): Everett Vinson DO [Primary Care Provider] - 06/15/21 11:15 am Patient Instructions/Handouts: Thiamine (By mouth), Folic Acid (By mouth), Multivitamins, Adult Formula (By mouth), Heart Healthy Diet (DC), Alcohol Intoxication (ED), Abuse of Alcohol (DC), At-Risk Alcohol Use (DC), Alcohol Withdrawal (DC), Anxiety (GEN), Alcohol Dependence (DC), Mediterranean Diet (DC) Activity/Diet/Wound Care/Special Instructions: Activity: As tolerated. Take breaks as needed. Diet: Heart healthy and carb consistent diet. Avoid salts, or foods with hidden salts such as canned or boxed foods and frozen dinners. Extra salt makes your heart work harder and traps the fluid in your body for longer. Special Instructions: Take all of your medications as directed and remember to keep all of your doctor's appointments and follow-up as needed. Thank you for allowing us to participate in your care, it was truly a pleasure having you for our patient!!! Wishing you a very happy and blessed new year!!! Discharge Disposition: HOME SELF-CARE <VishalArturchinyere - Last Filed: 06/13/21 07:58> Providers Date of admission: 06/09/21 08:50 Attending physician: Aye Pratt MD Primary care physician: [facility] Hospital Course: I reviewed the documentation as provided by the MIKE above, who is the original author of this note. I agree with the documented assessment and plan, with the following changes: none
[2021-06-12 11:51] LABS: Glucose,Whole Blood 115 mg/dL (75-99)
== END 2021-06-12 12:07 | disposition home or self-care (01) | DRG 896 ==
LOC: EC 05:58 → 5NMEDONC 08:50
PROVIDERS: ADMIT Internal Medicine; ATTEND Internal Medicine
PROC: HZ2ZZZZ Detoxification Services for Substance Abuse Treatment (ICD-10-PCS; principal; 2021-06-09)
DX: F10.139 Alcohol abuse with withdrawal, unspecified (principal); G92.8 Other toxic encephalopathy; F10.129 Alcohol abuse with intoxication, unspecified; Y90.8 Blood alcohol level of 240 mg/100 ml or more; F19.10 Other psychoactive substance abuse, uncomplicated; E88.89 Other specified metabolic disorders; E11.65 Type 2 diabetes mellitus with hyperglycemia; F32.A Depression, unspecified; E86.0 Dehydration; M54.9 Dorsalgia, unspecified; M06.9 Rheumatoid arthritis, unspecified; R00.0 Tachycardia, unspecified; F41.9 Anxiety disorder, unspecified; G89.29 Other chronic pain; R42 Dizziness and giddiness; M79.7 Fibromyalgia; Z20.822 Contact with and (suspected) exposure to COVID-19; F17.210 Nicotine dependence, cigarettes, uncomplicated; Z71.41 Alcohol abuse counseling and surveillance of alcoholic; Z71.51 Drug abuse counseling and surveillance of drug abuser; Z88.0 Allergy status to penicillin; Z79.899 Other long term (current) drug therapy; Z91.14 Patient's other noncompliance with medication regimen
CPT/HCPCS: 36415; 71046; 80053; 80306; 80320; 81001; 81025; 82140; 83036; 83735; 84484; 85025; 85610; 87635; 96361; 96365; 96366; 96372; 96375; 96376; 99285

== ENCOUNTER 2021-06-30 11:19 | Emergency (ER) | payer BC ==
[2021-06-30 11:33] VITALS: RESP 18; TEMP 98.5
[2021-06-30] MEDS ORDERED: SODIUM CHLORIDE 0.9% 1,000 ML IV STA (11:52)
[2021-06-30] MEDS ORDERED: PANTOPRAZOLE 40 MG/10 ML VIAL IVP STA (11:53)
[2021-06-30] MEDS ORDERED: LORazepam 2 MG/ML INJ IV STA (11:53)
[2021-06-30] MEDS ORDERED: THIAMINE 100 MG/ML 2 ML VIAL IM STA (11:53)
[2021-06-30] MEDS ORDERED: LORazepam 2 MG/ML INJ IV PRN ×2 (11:54)
[2021-06-30 12:04] LABS: Basophils % (A) 1 %; Eosinophils # (A) 0.1 k/uL (0-0.7); Eosinophils % (A) 2 %; HCT 39.9 % (34.0-46.0); HGB 13.2 gm/dL (11.4-16.0); Lymphocytes # (A) 2.4 k/uL (1.0-4.8); Lymphocytes % (A) 37 %; MCH 29.7 pg (25.0-35.0); MCHC 33.1 g/dL (31.0-37.0); MCV 89.5 fL (80.0-100.0); Mean Platelet Volume 7.3; Monocytes # (A) 0.3 k/uL (0-1.0); Monocytes % (A) 5 %; Neutrophils # (A) 3.6 k/uL (1.3-7.7); Neutrophils % (A) 55 %; Platelet Count 223 k/uL (150-450); RBC 4.46 m/uL (3.80-5.40); RDW 13.9 % (11.5-15.5); WBC 6.5 k/uL (3.8-10.6)
[2021-06-30 12:07] LABS: Glucose,Whole Blood 285 mg/dL (75-99)
[2021-06-30 12:16] LABS: ALT 167 U/L (4-34); AST 442 U/L (14-36); African American GFR (CKD) >90 (>60 ml/min/1.73 sqM); Albumin 3.5 g/dL (3.5-5.0); Alcohol 74 mg/dL; Alkaline Phosphatase 88 U/L (38-126); Anion Gap 12 mmol/L; Blood Urea Nitrogen 6 mg/dL (7-17); Calcium 7.9 mg/dL (8.4-10.2); Carbon Dioxide 23 mmol/L (22-30); Chloride 96 mmol/L (98-107); Glucose 296 mg/dL (74-99); Non-African American GFR(CKD) 90 (>60 ml/min/1.73 sqM); Potassium 3.7 mmol/L (3.5-5.1); Sodium 131 mmol/L (137-145); Total Bilirubin 1.1 mg/dL (0.2-1.3); Total Protein 6.4 g/dL (6.3-8.2)
[2021-06-30 12:45] LABS: Lipase 188 U/L (23-300)
--- NOTE | 2021-06-30 13:33 | ED ---
Alcohol HPI - General Chief Complaint: Alcohol Stated Complaint: Seizure, GI bleed & dizziness Time Seen by Provider: 06/30/21 11:37 Source: patient Mode of arrival: wheelchair Limitations: no limitations - History of Present Illness Initial Comments: This 40-year-old female with a past medical history of chronic alcohol abuse presents to the emergency department withdrawing from alcohol. Patient states she has been trying to slowly wean herself off of alcohol for the last couple of weeks. Patient states she thinks her last alcohol beverage was this morning but is unsure and does not fully remember. Patient states she came here today after having 2 episodes of bloody stool and two episodes of bloody vomit this morning. Patient states she was here a few weeks ago and did receive help for her alcohol abuse, however, she states she ran out of her prescribed medications 2-3 weeks ago and began drinking again. Patient states she tried to get out of bed and does remember falling, hitting her head on the wall. Patient states she does believe she had a seizure this morning after her fall. Patient states she has tried to withdraw from alcohol or on her own in the past and has experienced seizures while doing so. Patient states she is experiencing some shortness of breath and feels very anxious while here. Patient states she does have abd ominal pain at this time but denies any current shortness of breath. Patient states she has been experiencing nausea and vomiting on and off for the last 2 weeks as she has been trying to decrease her alcohol intake for the time. Patient denies any chest pain, change in vision, lightheadedness. - Related Data Home Medications Medication Instructions Recorded Confirmed DULoxetine HCL [Cymbalta] 60 mg PO DAILY 09/22/18 06/30/21 Baclofen 10 mg PO TID PRN 06/09/21 06/30/21 Pregabalin [Lyrica] 100 mg PO BID 06/09/21 06/30/21 clonazePAM 0.5 mg PO TID PRN 06/09/21 06/30/21 lamoTRIgine [LaMICtal] 200 mg PO DAILY 06/09/21 06/30/21 Multivitamins, Thera [Multivitamin 1 tab PO DAILY 06/30/21 06/30/21 (formulary)] Previous Rx's Medication Instructions Recorded Folic Acid 1 mg PO DAILY 30 Days #30 tab 01/11/22 Thiamine [Vitamin B-1] 100 mg PO BID-W/MEALS 30 Days #30 06/12/21 tab Allergies Allergy/AdvReac Type Severity Reaction Status Date / Time Penicillins Allergy Rash/Hives Verified 06/30/21 12:13 Review of Systems ROS Statement: Those systems with pertinent positive or pertinent negative responses have been documented in the HPI. ROS Other: All systems not noted in ROS Statement are negative. Past Medical History Past Medical History: Fibromyalgia, Rheumatoid Arthritis (RA) History of Any Multi-Drug Resistant Organisms: None Reported Past Surgical History: Section Additional Past Anesthesia/Blood Transfusion Reaction / Comment(s): Pt states she has never had surgery/anesthesia or blood Past Psychological History: Anxiety, Depression Smoking Status: Current every day smoker Past Alcohol Use History: Abuse, Daily, Heavy Past Drug Use History: Marijuana - Past Family History Father Family Medical History: No Reported History Additional Family Medical History / Comment(s): Pt states father is healthy. Mother Family Medical History: No Reported History Additional Family Medical History / Comment(s): Mother is healthy General Exam Limitations: no limitations General appearance: alert, anxious, other (Patient unable to sit still and states she scared she is going to . Patient is crying. She states she currently feels anxious.) Head exam: Present: atraumatic, normocephalic Eye exam: Present: PERRL, EOMI. Absent: nystagmus ENT exam: Present: mucous membranes moist Neck exam: Present: full ROM Respiratory exam: Present: normal lung sounds bilaterally. Absent: respiratory distress, wheezes, rales, rhonchi, stridor Cardiovascular Exam: Present: regular rate, normal rhythm, normal heart sounds. Absent: systolic murmur, diastolic murmur, rubs, gallop, clicks GI/Abdominal exam: Present: soft, tenderness (If used tenderness in all 4 quadrants to light palpation. Left upper quadrant with more severe pain when palpated.), normal bowel sounds. Absent: distended, guarding, rebound, rigid Rectal exam: Present: normal rectal tone, heme (+) stool. Absent: hemorrhoids Extremities exam: Present: normal inspection, full ROM, normal capillary refill. Absent: tenderness, pedal edema, joint swelling, calf tenderness Back exam: Absent: tenderness, CVA tenderness (R), CVA tenderness (L) Neurological exam: Present: alert, oriented X3, CN II-XII intact Psychiatric exam: Present: anxious Skin exam: Present: warm, dry, intact, normal color. Absent: rash Course Vital Signs 06/30/21 06/30/21 06/30/21 11:29 15:14 17:58 Temperature 98.5 F Pulse Rate 140 H 111 H 112 H Respiratory 18 18 18 Rate Blood Pressure 124/91 132/101 137/62 O2 Sat by Pulse 97 Oximetry - Reevaluation(s) Reevaluation #1: 06/30/21 17:28 Patient has vitals stable this time. Heart rate is 90. Reevaluation #2: 06/30/21 18:22 Patient states she does feel anxious at this time. She denies any chest pain shortness of breath, nausea. Medical Decision Making - Medical Decision Making This 40-year-old female with past medical history of alcohol abuse presents the emergency department with a GI bleed and active alcohol withdrawal. CIWA score 21. CIWA protocol has been followed here. Chest abdomen pelvis CT with no acute abnormality. Brain and cervical spine CT without any acute abnormality. Labs revealed elevated AST and ALT. Plasma lactic acid 5.1. H&H stable. Urine unremarkable. Occult blood positive. Serum alcohol 74. Fluids, banana bag, Zofran, ativan given based on CIWA score. Patient to be transferred to [facility] and was accepted by Dr. Joie Hernandes. Patient sent in stable condition. Case was discussed with my attending, Dr. Way. - Lab Data Result diagrams: 06/30/21 11:57 06/30/21 11:57 Lab Results 06/30/21 06/30/21 06/30/21 Range/Units 11:57 11:57 12:06 WBC 6.5 (3.8-10.6) k/uL RBC 4.46 (3.80-5.40) m/uL Hgb 13.2 (11.4-16.0) gm/dL Hct 39.9 (34.0-46.0) % MCV 89.5 (80.0-100.0) fL MCH 29.7 (25.0-35.0) pg MCHC 33.1 (31.0-37.0) g/dL RDW 13.9 (11.5-15.5) % Plt Count 223 (150-450) k/uL MPV 7.3 Neutrophils % 55 % Lymphocytes % 37 % Monocytes % 5 % Eosinophils % 2 % Basophils % 1 % Neutrophils # 3.6 (1.3-7.7) k/uL Lymphocytes # 2.4 (1.0-4.8) k/uL Monocytes # 0.3 (0-1.0) k/uL Eosinophils # 0.1 (0-0.7) k/uL Basophils # 0.0 (0-0.2) k/uL PT (9.0-12.0) sec INR (<1.2) APTT (22.0-30.0) sec Sodium 131 L (137-145) mmol/L Potassium 3.7 (3.5-5.1) mmol/L Chloride 96 L (98-107) mmol/L Carbon Dioxide 23 (22-30) mmol/L Anion Gap 12 mmol/L BUN 6 L (7-17) mg/dL Creatinine 0.83 (0.52-1.04) mg/dL Est GFR (CKD-EPI)AfAm >90 (>60 ml/min/1.73 sqM) Est GFR (CKD-EPI)NonAf 90 (>60 ml/min/1.73 sqM) Glucose 296 H (74-99) mg/dL POC Glucose (mg/dL) 285 H (75-99) mg/dL POC Glu Manager [employer] ID Willing, Catherine Lactic Ac Sepsis Rflx Plasma Lactic Acid Hi (0.7-2.0) mmol/L Calcium 7.9 L (8.4-10.2) mg/dL Total Bilirubin 1.1 (0.2-1.3) mg/dL AST 442 H (14-36) U/L ALT 167 H (4-34) U/L Alkaline Phosphatase 88 (38-126) U/L Total Protein 6.4 (6.3-8.2) g/dL Albumin 3.5 (3.5-5.0) g/dL Lipase 188 (23-300) U/L Urine Color Urine Appearance (Clear) Urine pH (5.0-8.0) Ur Specific [place] (1.001-1.035) Urine Protein (Negative) Urine Glucose (UA) (Negative) Urine Ketones (Negative) Urine Blood (Negative) Urine Nitrite (Negative) Urine Bilirubin (Negative) Urine Urobilinogen (<2.0) mg/dL Ur Leukocyte Esterase (Negative) Urine RBC (0-5) /hpf Urine WBC (0-5) /hpf Ur Squamous Epith Cells (0-4) /hpf Stool Occult Blood (Negative) Urine Opiates Screen (NotDetected) Ur Oxycodone Screen (NotDetected) Urine Methadone Screen (NotDetected) Ur Propoxyphene Screen (NotDetected) Ur Barbiturates Screen (NotDetected) U Tricyclic Antidepress (NotDetected) Ur Phencyclidine Scrn (NotDetected) Ur Amphetamines Screen (NotDetected) U Methamphetamines Scrn (NotDetected) U Benzodiazepines Scrn (NotDetected) Urine Cocaine Screen (NotDetected) U Marijuana (THC) Screen (NotDetected) Serum Alcohol 74 mg/dL 06/30/21 06/30/21 06/30/21 Range/Units 12:17 12:17 12:38 WBC (3.8-10.6) k/uL RBC (3.80-5.40) m/uL Hgb (11.4-16.0) gm/dL Hct (34.0-46.0) % MCV (80.0-100.0) fL MCH (25.0-35.0) pg MCHC (31.0-37.0) g/dL RDW (11.5-15.5) % Plt Count (150-450) k/uL MPV Neutrophils % % Lymphocytes % % Monocytes % % Eosinophils % % Basophils % % Neutrophils # (1.3-7.7) k/uL Lymphocytes # (1.0-4.8) k/uL Monocytes # (0-1.0) k/uL Eosinophils # (0-0.7) k/uL Basophils # (0-0.2) k/uL PT (9.0-12.0) sec INR (<1.2) APTT (22.0-30.0) sec Sodium (137-145) mmol/L Potassium (3.5-5.1) mmol/L Chloride (98-107) mmol/L Carbon Dioxide (22-30) mmol/L Anion Gap mmol/L BUN (7-17) mg/dL Creatinine (0.52-1.04) mg/dL Est GFR (CKD-EPI)AfAm (>60 ml/min/1.73 sqM) Est GFR (CKD-EPI)NonAf (>60 ml/min/1.73 sqM) Glucose (74-99) mg/dL POC Glucose (mg/dL) (75-99) mg/dL POC Glu Manager [employer] Safety ID Lactic Ac Sepsis Rflx Y Plasma Lactic Acid Hi 5.1 H* (0.7-2.0) mmol/L Calcium (8.4-10.2) mg/dL Total Bilirubin (0.2-1.3) mg/dL AST (14-36) U/L ALT (4-34) U/L Alkaline Phosphatase (38-126) U/L Total Protein (6.3-8.2) g/dL Albumin (3.5-5.0) g/dL Lipase (23-300) U/L Urine Color Urine Appearance (Clear) Urine pH (5.0-8.0) Ur Specific [place] (1.001-1.035) Urine Protein (Negative) Urine Glucose (UA) (Negative) Urine Ketones (Negative) Urine Blood (Negative) Urine Nitrite (Negative) Urine Bilirubin (Negative) Urine Urobilinogen (<2.0) mg/dL Ur Leukocyte Esterase (Negative) Urine RBC (0-5) /hpf Urine WBC (0-5) /hpf Ur Squamous Epith Cells (0-4) /hpf Stool Occult Blood Positive H (Negative) Urine Opiates Screen (NotDetected) Ur Oxycodone Screen (NotDetected) Urine Methadone Screen (NotDetected) Ur Propoxyphene Screen (NotDetected) Ur Barbiturates Screen (NotDetected) U Tricyclic Antidepress (NotDetected) Ur Phencyclidine Scrn (NotDetected) Ur Amphetamines Screen (NotDetected) U Methamphetamines Scrn (NotDetected) U Benzodiazepines Scrn (NotDetected) Urine Cocaine Screen (NotDetected) U Marijuana (THC) Screen (NotDetected) Serum Alcohol mg/dL 06/30/21 06/30/21 06/30/21 Range/Units 13:59 15:13 16:11 WBC (3.8-10.6) k/uL RBC (3.80-5.40) m/uL Hgb (11.4-16.0) gm/dL Hct (34.0-46.0) % MCV (80.0-100.0) fL MCH (25.0-35.0) pg MCHC (31.0-37.0) g/dL RDW (11.5-15.5) % Plt Count (150-450) k/uL MPV Neutrophils % % Lymphocytes % % Monocytes % % Eosinophils % % Basophils % % Neutrophils # (1.3-7.7) k/uL Lymphocytes # (1.0-4.8) k/uL Monocytes # (0-1.0) k/uL Eosinophils # (0-0.7) k/uL Basophils # (0-0.2) k/uL PT 12.2 H (9.0-12.0) sec INR 1.2 H (<1.2) APTT 25.9 (22.0-30.0) sec Sodium (137-145) mmol/L Potassium (3.5-5.1) mmol/L Chloride (98-107) mmol/L Carbon Dioxide (22-30) mmol/L Anion Gap mmol/L BUN (7-17) mg/dL Creatinine (0.52-1.04) mg/dL Est GFR (CKD-EPI)AfAm (>60 ml/min/1.73 sqM) Est GFR (CKD-EPI)NonAf (>60 ml/min/1.73 sqM) Glucose (74-99) mg/dL POC Glucose (mg/dL) (75-99) mg/dL POC Glu Manager [employer] Health [employer] Safety ID Lactic Ac Sepsis Rflx Plasma Lactic Acid Hi 2.0 (0.7-2.0) mmol/L Calcium (8.4-10.2) mg/dL Total Bilirubin (0.2-1.3) mg/dL AST (14-36) U/L ALT (4-34) U/L Alkaline Phosphatase (38-126) U/L Total Protein (6.3-8.2) g/dL Albumin (3.5-5.0) g/dL Lipase (23-300) U/L Urine Color Light Yellow Urine Appearance Clear (Clear) Urine pH 7.0 (5.0-8.0) Ur Specific [place] 1.021 (1.001-1.035) Urine Protein Negative (Negative) Urine Glucose (UA) 2+ H (Negative) Urine Ketones Negative (Negative) Urine Blood Moderate H (Negative) Urine Nitrite Negative (Negative) Urine Bilirubin Negative (Negative) Urine Urobilinogen <2.0 (<2.0) mg/dL Ur Leukocyte Esterase Negative (Negative) Urine RBC <1 (0-5) /hpf Urine WBC <1 (0-5) /hpf Ur Squamous Epith Cells <1 (0-4) /hpf Stool Occult Blood (Negative) Urine Opiates Screen Not Detected (NotDetected) Ur Oxycodone Screen Not Detected (NotDetected) Urine Methadone Screen Not Detected (NotDetected) Ur Propoxyphene Screen Not Detected (NotDetected) Ur Barbiturates Screen Not Detected (NotDetected) U Tricyclic Antidepress Not Detected (NotDetected) Ur Phencyclidine Scrn Not Detected (NotDetected) Ur Amphetamines Screen Not Detected (NotDetected) U Methamphetamines Scrn Not Detected (NotDetected) U Benzodiazepines Scrn Not Detected (NotDetected) Urine Cocaine Screen Not Detected (NotDetected) U Marijuana (THC) Screen Detected H (NotDetected) Serum Alcohol mg/dL When compared to previous EKG there are: other (EKG deprecation ventricular rate 111 bpm WI interval 146 QRS duration 86 QT/QTc 328/446 Sinus tachycardia noted, similar compared to prior. No ST elevations or depressions noted) Disposition Clinical Impression: GI bleed, Alcohol withdrawal seizure Disposition: OTHER INSTITUTION NOT DEFINED Condition: Serious Instructions (If sedation given, give patient instructions): Gastrointestinal Bleeding (ED), Alcohol Withdrawal (ED) Is patient prescribed a controlled substance at d/c from ED?: No Referrals: Everett Vinson DO [Primary Care Provider] - 1-2 days Time of Disposition: 18:13 - Out of Hospital Transfer - Req. Specs Out of Hospital Transfer - Requested Specifics: Other Emergency Center ([facility], Dr. Joie Hernandes)
--- NOTE | 2021-06-30 13:49 | CT ---
EXAMINATION TYPE: CT brain clem mccollum con DATE OF EXAM: 06/30/2021 COMPARISON: 09/20/2018 HISTORY: Dizziness CT DLP: 1388.1 mGycm Automated exposure control for dose reduction was used. TECHNIQUE: CT scan of the head and cervical spine are performed without contrast. FINDINGS: There is no acute intracranial hemorrhage, mass effect, or midline shift identified. The ventricles and sulci are within normal limits in size. The globes are intact and the visualized sin uses are clear. Cervical spine is visualized in its entirety from C1 through upper thoracic levels and demonstrates s atisfactory alignment without evidence of acute fracture or dislocation. Prevertebral soft tissue ap pears within normal limits. The C1-C2 articulation is unremarkable. IMPRESSION: 1. There is no acute fracture or dislocation evident in the cervical spine. 2. No acute intracranial hemorrhage, mass effect, or midline shift is seen.
--- NOTE | 2021-06-30 13:55 | CT ---
CTA abdomen and pelvis. HISTORY: GI bleeding and trauma. COMPARISON: 09/20/2018. TECHNIQUE: Multiple axial images are obtained to the abdomen and pelvis Following administration of oral and nonionic IV contrast. Delayed postcontrast images were obtained. Coronal and sagittal reconstructions were generated and reviewed. Exam was performed according to e CTA protocol. There is no focal mass or organomegaly involving the liver, pancreas, spleen or adrenal glands. The gallbladder is normal. There is no biliary ductal dilatation. The kidneys excrete contrast promptly and symmetrically is no solid renal mass or hydronephrosis. The re is no retroperitoneal adenopathy or hemorrhage in the caliber of the abdominal aorta is normal. e bowel loops are normal in caliber and there is no evidence of obstruction. No inflammatory changes are identified in the bowel wall or mesentery. There is no free intraperitoneal air or fluid. There is no pelvic mass, free fluid, abscess or adenopathy. The urinary bladder is moderately distend ed. The osseous structures are intact. IMPRESSION: No significant abnormality seen. No acute changes within the abdomen.
--- NOTE | 2021-06-30 13:56 | CT ---
EXAMINATION TYPE: CT chest w con DATE OF EXAM: 06/30/2021 COMPARISON: None HISTORY: Coughing up blood, shortness of breath CT DLP: Included in CTA abd mGycm Automated exposure control for dose reduction was used. TECHNIQUE: CT scan of the chest is performed with IV Contrast, patient injected with 100 mL of Isovue 370. MIP Images are created on CT scanner and reviewed. 3D reconstructed images are created on an independent workstation and reviewed. FINDINGS: The lungs are clear of consolidative, interstitial or masslike density. There is no pleural effusion, pleural thickening or pneumothorax. Great vessels chest are normal and there is no mediastinal, hilar or axillary adenopathy. Visualized osseous structures and soft tissues No significant abnormality seen.
[2021-06-30 14:12] LABS: Appearance,Urine Clear (Clear); Bilirubin,Urine Negative (Negative); Blood,Urine Moderate (Negative); Color,Urine Light Yellow; Glucose,Urine (UA) 2+ (Negative); Ketones,Urine Negative (Negative); Leukocyte Esterase,Urine Negative (Negative); Nitrite,Urine Negative (Negative); Protein,Urine Negative (Negative); RBC,Urine <1 /hpf (0-5); Specific Gravity,Urine 1.021 (1.001-1.035); Squamous Epithelial Cell,Urine <1 /hpf (0-4); Urobilinogen,Urine <2.0 mg/dL (<2.0); WBC,Urine <1 /hpf (0-5)
[2021-06-30] MEDS ORDERED: SODIUM CHLORIDE 0.9% 1,000 ML IV ONE (14:17)
[2021-06-30] MEDS ORDERED: THIAMINE 100 MG TAB PO ONE (14:45)
[2021-06-30] MEDS ORDERED: MULTIVITAMINS, THERA 1 EACH TAB PO ONE (14:45)
[2021-06-30] MEDS ORDERED: FOLIC ACID 1 MG TAB PO ONE (14:45)
[2021-06-30 14:47] LABS: Amphetamine Screen,Urine Not Detected (NotDetected); Barbiturate Screen,Urine Not Detected (NotDetected); Benzodiazepines Screen,Urine Not Detected (NotDetected); Cocaine Screen,Urine Not Detected (NotDetected); Methadone Screen, Urine Not Detected (NotDetected); Opiate Screen,Urine Not Detected (NotDetected); Oxycodone Screen, Urine Not Detected (NotDetected); Phencyclidine Screen,Urine Not Detected (NotDetected); Tricyclic Antidepressant,Urine Not Detected (NotDetected); Urn Cannabinoid Scrn Detected (NotDetected)
[2021-06-30] MEDS: LORazepam 2 MG/ML INJ IV PRN ×3 (15:18→20:06)
[2021-06-30 16:24] LABS: INR 1.2 (<1.2); Partial Thromboplastin Time 25.9 sec (22.0-30.0); Prothrombin Time 12.2 sec (9.0-12.0)
[2021-06-30] MEDS ORDERED: ONDANSETRON 4 MG/2 ML VIAL IVP STA (17:30)
[2021-06-30 20:06] VITALS: BP 163/101; PULSE 115
== END 2021-06-30 21:03 | disposition other institution (70) ==
LOC: EC 11:19
DX: K92.2 Gastrointestinal hemorrhage, unspecified (principal); F10.239 Alcohol dependence with withdrawal, unspecified; R56.9 Unspecified convulsions; M06.9 Rheumatoid arthritis, unspecified; Z79.899 Other long term (current) drug therapy; F17.200 Nicotine dependence, unspecified, uncomplicated; Z20.822 Contact with and (suspected) exposure to COVID-19; Z88.0 Allergy status to penicillin
CPT/HCPCS: 36415; 86900; 86901; 80053; 83605; 83690; 85025; 85610; 85730; 86850; 82272; 81001; 80306; 80320; 87635; 72125; 70450; 71260; 74174; 99285; 96374; 96375; 96376; J2060; J3411; J2405; C9113; Q9967; 93005; 99284